=== PATIENT | male | born 1935 | race Hispanic/Latino ===

== ENCOUNTER 2017-01-26 01:11 | Inpatient (IN) | payer MEDICARE ==
[2017-01-26 03:28] LABS: Basophils % (Auto) 0.4 % (0.0-1.8); Hematocrit 39.6 % (35.5-45.6); Hemoglobin 13.1 gm/dl (11.8-15.2); Mean Corpuscular HGB Conc 33 % (32-34); Mean Corpuscular Hemoglobin 31 pg (28-32); Mean Corpuscular Volume 93 fl (84-94); Platelet Count 182 K/mm3 (140-440); Red Blood Count 4.28 M/mm3 (3.65-5.03); Red Cell Distribution Width 15.6 % (13.2-15.2); White Blood Count 19.1 K/mm3 (4.5-11.0)
[2017-01-26 03:37] LABS: INR 1.3 (0.87-1.13)
[2017-01-26 03:38] LABS: Partial Thromboplastin Time 32.6 Sec. (24.2-36.6)
[2017-01-26 03:47] LABS: Anion Gap 22 mmol/L; BUN/Creatinine Ratio 19.16; Blood Urea Nitrogen 23 mg/dL (9-20); Calcium 9.5 mg/dL (8.4-10.2); Carbon Dioxide 26 mmol/L (22-30); Chloride 97.2 mmol/L (98-107); Glucose 105 mg/dL (75-100); Potassium 3.9 mmol/L (3.6-5.0); Sodium 141 mmol/L (137-145)
[2017-01-26] MEDS ORDERED: TYLENOL PO ONE (06:59)
[2017-01-26] MEDS ORDERED: LOVENOX SUB-Q ONE (06:59)
--- NOTE | 2017-01-26 07:00 | Emergency Department Report ---
ED General Adult HPI - General Chief complaint: Upper Respiratory Infection Stated complaint: CHEST CONGESTION/FEVER Time Seen by Provider: 01/26/17 06:43 Source: patient, RN notes reviewed Mode of arrival: Ambulatory Limitations: No Limitations - History of Present Illness Initial comments: Past medical history: Atrial fibrillation, on Coumadin therapy, CHF, hypertension, chronic bilateral extremity venous insufficiency This is an 81-year-old male. He is previously unknown to me. Follows with Rufina Carrasco sporadically for cardiology. Primary care doctor is Dr. Fritz. Patient presents to the ER with cough. Cough has been present for one week. No chest pain. Positive fevers. No stenotic and shortness of breath. No nausea, vomiting or diarrhea. Patient received his influenza shot in August. His primary care doctor is managing his Coumadin level as per the patient and his son. Cough has no exacerbating or relieving factors. Patient came to the ER at the request of family. -: Gradual Severity scale (0 -10): 0 Consistency: intermittent Improves with: none Worsens with: none Associated Symptoms: cough, fever/chills. denies: chest pain - Related Data Home Medications Medication Instructions Recorded Confirmed Last Taken Carvedilol [Coreg] 6.25 mg PO BID 09/30/13 01/26/17 Unknown Furosemide [Lasix] 40 mg PO DAILY 09/30/13 01/26/17 Unknown Allopurinol [Zyloprim] 200 mg PO QDAY 01/26/17 01/26/17 Unknown Levothyroxine [Synthroid] 88 mcg PO QAM 01/26/17 01/26/17 Unknown Lisinopril [Zestril TAB] 10 mg PO QDAY 01/26/17 01/26/17 Unknown Pravastatin Sodium [Pravastatin] 20 mg PO QHS 01/26/17 01/26/17 Unknown Warfarin [Coumadin] 6 mg PO QDAY 01/26/17 01/26/17 Unknown Previous Rx's Medication Instructions Recorded Last Taken Type Acetaminophen Oral Liqd [Tylenol] 650 mg PO Q6H PRN #30 oral.liqd 03/28/14 Unknown Rx Digoxin [Lanoxin] 0.125 mg PO DAILY #30 tablet 03/28/14 Unknown Rx Albuterol Sulfate [Proair 90 mcg IH Q4HR PRN #2 aer.pow.ba 01/26/17 Unknown Rx Respiclick] Doxycycline [Vibramycin CAP] 100 mg PO Q12HR #14 capsule 01/26/17 Unknown Rx Enoxaparin [Lovenox] 80 mg SQ Q12HR #10 syringe 01/26/17 Unknown Rx Allergies Allergy/AdvReac Type Severity Reaction Status Date / Time No Known Allergies Allergy Verified 10/30/16 12:15 ED Review of Systems ROS: Stated complaint: CHEST CONGESTION/FEVER Other details as noted in HPI Constitutional: denies: malaise Eyes: denies: vision change Respiratory: cough Cardiovascular: denies: chest pain Gastrointestinal: denies: nausea Genitourinary: denies: dysuria Musculoskeletal: denies: back pain Skin: lesions Neurological: denies: weakness Psychiatric: as per HPI ED Past Medical Hx - Past Medical History Previous Medical History?: Yes Hx Hypertension: Yes Hx Heart Attack/AMI: Yes Hx Congestive Heart Failure: Yes Hx Diabetes: No Additional medical history: chronic cellulitis BLE. hypothyroidism. CAD, afib, - Surgical History Additional Surgical History: "jaw surgery" - Social History Smoking Status: Former Smoker Substance Use Type: None - Medications Home Medications: Home Medications Medication Instructions Recorded Confirmed Last Taken Type Carvedilol [Coreg] 6.25 mg PO BID 09/30/13 01/26/17 Unknown History Furosemide [Lasix] 40 mg PO DAILY 09/30/13 01/26/17 Unknown History Acetaminophen Oral Liqd [Tylenol] 650 mg PO Q6H PRN #30 oral.liqd 03/28/1401/26 Unknown Rx Digoxin [Lanoxin] 0.125 mg PO DAILY #30 tablet 03/28/14 01/26/17 Unknown Rx Albuterol Sulfate [Proair 90 mcg IH Q4HR PRN #2 aer.pow.ba 01/26/17 Unknown Rx Respiclick] Allopurinol [Zyloprim] 200 mg PO QDAY 01/26/17 01/26/17 Unknown History Doxycycline [Vibramycin CAP] 100 mg PO Q12HR #14 capsule 01/26/17 Unknown Rx Enoxaparin [Lovenox] 80 mg SQ Q12HR #10 syringe 01/26/17 Unknown Rx Levothyroxine [Synthroid] 88 mcg PO QAM 01/26/17 01/26/17 Unknown History Lisinopril [Zestril TAB] 10 mg PO QDAY 01/26/17 01/26/17 Unknown History Pravastatin Sodium [Pravastatin] 20 mg PO QHS 01/26/17 01/26/17 Unknown History Warfarin [Coumadin] 6 mg PO QDAY 01/26/17 01/26/17 Unknown History ED Physical Exam - General Limitations: No Limitations General appearance: alert, in no apparent distress - Head Head exam: Present: atraumatic, normocephalic - Eye Eye exam: Present: normal appearance, EOMI. Absent: nystagmus - ENT ENT exam: Present: normal exam, normal orophraynx, mucous membranes moist, TM's normal bilaterally, normal external ear exam - Neck Neck exam: Present: normal inspection, full ROM. Absent: tenderness, meningismus - Respiratory Respiratory exam: Present: normal lung sounds bilaterally. Absent: respiratory distress, wheezes, rales, rhonchi, stridor, chest wall tenderness - Cardiovascular Cardiovascular Exam: Present: regular rate, irregular rhythm, normal heart sounds. Absent: systolic murmur, diastolic murmur, rubs, gallop - GI/Abdominal GI/Abdominal exam: Present: soft, normal bowel sounds. Absent: distended, tenderness, guarding, rebound, rigid, pulsatile mass - Rectal Rectal exam: Present: deferred - Extremities Exam Extremities exam: Present: normal inspection, full ROM, normal capillary refill. Absent: tenderness, pedal edema, joint swelling, calf tenderness - Back Exam Back exam: Present: normal inspection, full ROM. Absent: tenderness, CVA tenderness (R), CVA tenderness (L), muscle spasm, paraspinal tenderness, vertebral tenderness - Neurological Exam Neurological exam: Present: alert, oriented X3, normal gait, other (Extraocular movements intact. Tongue midline. No facial droop. Facial sensation intact to light touch in the V1, V2, V3 distribution bilaterally. 5 and 5 strength in 4 extremities.. Sensation is intact to light touch in 4 extremities.). Absent : motor sensory deficit - Psychiatric Psychiatric exam: Present: normal affect, normal mood - Skin Skin exam: Present: warm, rash, other (lesions consistent with chronic venous insufficiency are noted in the bilateral lower extremities.) ED Course Vital Signs 01/26/17 01/26/17 01/26/17 02:39 06:58 08:33 Temperature 100.3 F H 98.3 F Pulse Rate 102 H 60 77 Respiratory 20 20 22 Rate Blood Pressure 140/58 Blood Pressure 160/68 129/75 [Right] O2 Sat by Pulse 93 96 97 Oximetry 01/26/17 01/26/17 01/26/17 11:26 11:27 11:34 Temperature Pulse Rate 53 L 53 L 53 L Respiratory 16 Rate Blood Pressure 107/46 Blood Pressure 107/64 [Right] O2 Sat by Pulse 95 Oximetry - Reevaluation(s) Reevaluation #1: 01/26/17 08:33 Differential diagnosis: Bronchitis, pneumonia, viral syndrome, incidental subtherapeutic INR assessment and plan: 81-year-old male with cough, fever, multiple vascular risk factors, x-ray that suggests possible mild CHF versus left lower lobe pneumonia. Given presence of fever, cough, leukocytosis, chest x-ray findings, she will be treated empirically for community-acquired pneumonia. Given that he is on Coumadin therapy, not a candidate for for quinolone or macrolide therapy. Therefore, he will be given ceftriaxone and doxycycline. I don't believe the patient is volume overloaded clinically, therefore, I will withhold diuretics at this time. Case is discussed with the Hospital physician, Dr. Valdo Kong, who accepts the patient to his service. Patient was loaded empirically with Lovenox for his subtherapeutic INR. 01/26/17 08:34 01/26/17 08:43 Reevaluation #2: 01/26/17 08:36 . 01/26/17 08:43 ED Medical Decision Making - Lab Data Result diagrams: 01/27/17 03:01/27/17 03:17 Vital Signs 01/26/17 01/26/17 01/26/17 02:39 06:58 08:33 Temperature 100.3 F H 98.3 F Pulse Rate 102 H 60 77 Respiratory 20 20 22 Rate Blood Pressure 140/58 Blood Pressure 160/68 129/75 [Right] O2 Sat by Pulse 93 96 97 Oximetry Lab Results 01/26/17 01/26/17 01/26/17 Range/Units 03:15 03:15 03:15 WBC 19.1 H (4.5-11.0) K/mm3 RBC 4.28 (3.65-5.03) M/mm3 Hgb 13.1 (11.8-15.2) gm/dl Hct 39.6 (35.5-45.6) % MCV 93 (84-94) fl MCH 31 (28-32) pg MCHC 33 (32-34) % RDW 15.6 H (13.2-15.2) % Plt Count 182 (140-440) K/mm3 Lymph % (Auto) 8.7 L (13.4-35.0) % Mcminn % (Auto) 5.0 (0.0-7.3) % Eos % (Auto) 0.0 (0.0-4.3) % Baso % (Auto) 0.4 (0.0-1.8) % Lymph # 1.7 (1.2-5.4) K/mm3 Mcminn # 0.9 H (0.0-0.8) K/mm3 Eos # 0.0 (0.0-0.4) K/mm3 Baso # 0.1 (0.0-0.1) K/mm3 Seg Neutrophils % 85.9 H (40.0-70.0) % Seg Neutrophils # 16.4 H (1.8-7.7) K/mm3 PT 16.1 H (12.2-14.9) Sec. INR 1.30 H (0.87-1.13) APTT 32.6 (24.2-36.6) Sec. Sodium 141 (137-145) mmol/L Potassium 3.9 (3.6-5.0) mmol/L Chloride 97.2 L (98-107) mmol/L Carbon Dioxide 26 (22-30) mmol/L Anion Gap 22 mmol/L BUN 23 H (9-20) mg/dL Creatinine 1.2 (0.8-1.5) mg/dL Estimated GFR 58 ml/min BUN/Creatinine Ratio 19.16 % Glucose 105 H (75-100) mg/dL Calcium 9.5 (8.4-10.2) mg/dL Troponin T < 0.010 (0.00-0.029) ng/mL - EKG Data When compared to previous EKG there are: no significant change 01/26/17 08:35 atrial fibrillation, 77 bpm, QTC 463 ms, motion artifact, not morphologically consistent with STEMI - Radiology Data Radiology results: report reviewed, image reviewed X-ray of the chest demonstrates mild CHF versus viral overload, subtle opacity noted in the left lower lobe, possible pneumonia Critical care attestation.: If time is entered above; I have spent that time in minutes in the direct care of this critically ill patient, excluding procedure time. ED Disposition Clinical Impression: Anticoagulated on Coumadin, Acute febrile illness, Cough Disposition: OP ADMITTED IP TO THIS HOSP Is pt being admited?: Yes Does the pt Need Aspirin: No Condition: Good
[2017-01-26] MEDS ORDERED: TYLENOL ONE (08:24)
--- NOTE | 2017-01-26 08:31 | XRay Report ---
ROUTINE CHEST, TWO VIEWS: HISTORY: Shortness of breath. Compared to 03/23/14. There is mild cardiomegaly and borderline pulmonary venous structures. Small left pleural effusion is suspected. There is subtle opacity in the left lower lobe which probably represents atelectatic changes. If fever is present, pneumonia could be considered. The remainder of the lungs are clear. No pneumothorax. Multiple calcified mediastinal lymph nodes and calcified right lung granuloma are noted consistent with chronic parenchymal disease. IMPRESSION: Mild CHF versus volume overload. Probable segmental atelectasis in the left lower lobe. See above.
[2017-01-26] MEDS ORDERED: VIBRAMYCIN PO ONE (08:42)
--- NOTE | 2017-01-26 08:53 | History and Physical Report ---
History of Present Illness Date of examination: 01/26/17 Date of admission: 01-26-17 Chief complaint: sob fever History of present illness: 81-year-old male with a history of hypertension congestive heart failure chronic venous stasis changes and lymphedema presents with a 4 day history of productive cough low-grade fever. Patient states he's been feeling a little more weak than usual otherwise no new concerns. Patient states he was coughing a lot and his live-in girlfriend told him to go to the emergency room. It was there that patient was found to have a left lower lobe pneumonia. And a white count of 19. His primary care physician Dr. loera. Present patient's hemodynamically stable breathing fine able to speak in full sentences and is not hypoxic at this time. Past History Past Medical History: atrial fib, heart failure, hypertension. denies: acute [place] , arrhythmia, arthritis, CAD, cancer, COPD, hepatitis, HIV/AIDS, liver disease, renal failure, seizures Past Surgical History: No surgical history, Other Social history: single (no surgery in his face when he was 15.), lives with family, smoking, full code, AND/DNR-allow natural . denies: alcohol abuse Family history: no significant family history Medications and Allergies Allergies Allergy/AdvReac Type Severity Reaction Status Date / Time No Known Allergies Allergy Verified 10/30/16 12:15 Home Medications Medication Instructions Recorded Confirmed Last Taken Type Carvedilol [Coreg] 6.25 mg PO BID 09/30/13 07/26/14 Unknown History Furosemide [Lasix] 20 mg PO DAILY 09/30/13 07/26/14 Unknown History Acetaminophen Oral Liqd [Tylenol] 650 mg PO Q6H PRN #30 oral.liqd 03/28/1407/26 Unknown Rx Digoxin [Lanoxin] 0.125 mg PO DAILY #30 tablet 03/28/14 07/26/14 Unknown Rx Warfarin [Coumadin] 7.5 mg PO DAILY@1700 #30 tablet 03/28/14 07/26/14 Unknown Rx Sulfamethoxazole/Trimethoprim 1 tab PO BID 07/26/14 07/26/14 Unknown History [Bactrim DS] Albuterol Sulfate [Proair 90 mcg IH Q4HR PRN #2 aer.pow.ba 01/26/17 Unknown Rx Respiclick] Doxycycline [Vibramycin CAP] 100 mg PO Q12HR #14 capsule 01/26/17 Unknown Rx Enoxaparin [Lovenox] 80 mg SQ Q12HR #10 syringe 01/26/17 Unknown Rx Active Meds: Active Medications Ceftriaxone Sodium (Rocephin/Ns 1 Gm/50 Ml) 1 gm in 50 mls @ 100 mls/hr IV ONCE ONE Stop: 01/26/17 09:29 Review of Systems Constitutional: fever, fatigue, no weight loss, no weight gain, no anorexia, no weakness, no malaise, no lethargy Ears, nose, mouth and throat: no deferred, no ear discharge, no decreased hearing, no nose pain, no nasal congestion, no dental pain, no mouth pain, no post-nasal drip, no vertigo, no neck fullness/pressure, no other Cardiovascular: shortness of breath, no chest pain, no edema, no paroxysmal nocturnal dyspnea, no high blood pressure Respiratory: cough, cough with sputum, shortness of breath, no excessive sputum , no hemoptysis, no congestion, no pleurisy, no pain, no snoring, no sleep apnea , no respiratory infections Gastrointestinal: no abdominal pain, no nausea, no constipation, no change in bowel habits, no melena, no loss of appetite, no heartburn, no jaundice, no dyspepsia/bloating, no lactose intolerance Genitourinary Male: no hematuria, no erectile dysfunction, no genital pain, no genital sores, no testicular pain Musculoskeletal: no neck pain, no shooting arm pain, no hot joints, no morning stiffness, no limitation of motion, no fractures, no loss of height, no arthritis Integumentary: no pruritis, no wounds, no jaundice, no lesions, no depigmentation, no color changes Neurological: no head injury, no transient paralysis, no paralysis, no weakness , no numbness, no tingling, no tremors, no vertigo, no migraines, no convulsions , no aphasia, no change in speech, no changes in smell/taste, no balance difficulties, no sensory deficit, no loss of vision, no hearing difficulties, no burning pain, no spasticity Psychiatric: no sleep disturbances, no change in appetite, no paranoia, no anhedonia, no sadness/tearfullness Endocrine: no heat intolerance, no excessive thirst, no polyuria, no excessive sweating, no flushing, no increase in ring/shoe/hat size, no proptosis, no deepening of the voice, no thyroid mass, no high blood sugars Hematologic/Lymphatic: no easy bruising, no lymphedema Allergic/Immunologic: no persistent infections, no anaphylaxis Exam - Constitutional Vitals: Temp Pulse Resp BP Pulse Ox 98.3 F 77 22 129/75 97 01/26/17 06:58 01/26/17 08:33 01/26/17 08:33 01/26/17 08:33 01/26/17 08:33 General appearance: Present: no acute distress, well-nourished - EENT ENT: hearing intact, clear oral mucosa - Neck Neck: Present: supple, normal ROM - Respiratory Respiratory: left: diminished - Cardiovascular Heart Sounds: Present: S1 & S2. Absent: rub, click - Extremities Extremities: pulses symmetrical Extremity abnormal: edema, other (significant edema lymphedema weeping chronic venous stasis changes.) Peripheral Pulses: abnormal - Abdominal General gastrointestinal: Present: soft, non-tender, non-distended, normal bowel sounds - Integumentary Integumentary: Present: rash - Musculoskeletal Musculoskeletal: generalized weakness - Psychiatric Psychiatric: appropriate mood/affect, intact judgment & insight - Neurologic Neurologic: CNII-XII intact, moves all extremities Results - Labs CBC & Chem 7: 01/26/17 03:15 01/26/17 03:15 Labs: Laboratory Last Values WBC 19.1 K/mm3 (4.5-11.0) H 01/26/17 03:15 RBC 4.28 M/mm3 (3.65-5.03) 01/26/17 03:15 Hgb 13.1 gm/dl (11.8-15.2) 01/26/17 03:15 Hct 39.6 % (35.5-45.6) 01/26/17 03:15 MCV 93 fl (84-94) 01/26/17 03:15 MCH 31 pg (28-32) 01/26/17 03:15 MCHC 33 % (32-34) 01/26/17 03:15 RDW 15.6 % (13.2-15.2) H 01/26/17 03:15 Plt Count 182 K/mm3 (140-440) 01/26/17 03:15 Lymph % (Auto) 8.7 % (13.4-35.0) L 01/26/17 03:15 Kay % (Auto) 5.0 % (0.0-7.3) 01/26/17 03:15 Eos % (Auto) 0.0 % (0.0-4.3) 01/26/17 03:15 Baso % (Auto) 0.4 % (0.0-1.8) 01/26/17 03:15 Lymph # 1.7 K/mm3 (1.2-5.4) 01/26/17 03:15 Kay # 0.9 K/mm3 (0.0-0.8) H 01/26/17 03:15 Eos # 0.0 K/mm3 (0.0-0.4) 01/26/17 03:15 Baso # 0.1 K/mm3 (0.0-0.1) 01/26/17 03:15 Seg Neutrophils % 85.9 % (40.0-70.0) H 01/26/17 03:15 Seg Neutrophils # 16.4 K/mm3 (1.8-7.7) H 01/26/17 03:15 PT 16.1 Sec. (12.2-14.9) H 01/26/17 03:15 INR 1.30 (0.87-1.13) H 01/26/17 03:15 APTT 32.6 Sec. (24.2-36.6) 01/26/17 03:15 Sodium 141 mmol/L (137-145) 01/26/17 03:15 Potassium 3.9 mmol/L (3.6-5.0) 01/26/17 03:15 Chloride 97.2 mmol/L (98-107) L 01/26/17 03:15 Carbon Dioxide 26 mmol/L (22-30) 01/26/17 03:15 Anion Gap 22 mmol/L 01/26/17 03:15 BUN 23 mg/dL (9-20) H 01/26/17 03:15 Creatinine 1.2 mg/dL (0.8-1.5) 01/26/17 03:15 Estimated GFR 58 ml/min 01/26/17 03:15 BUN/Creatinine Ratio 19.16 % 01/26/17 03:15 Glucose 105 mg/dL (75-100) H 01/26/17 03:15 Calcium 9.5 mg/dL (8.4-10.2) 01/26/17 03:15 Troponin T < 0.010 ng/mL (0.00-0.029) 01/26/17 03:15 - Imaging and Cardiology Chest x-ray: image reviewed Assessment and Plan Advance Directives: Yes VTE prophylaxis?: Chemical Plan of care discussed with patient/family: Yes - Patient Problems (1) Atrial fibrillation Current Visit: No Status: Acute Qualifiers: Atrial fibrillation type: A Qualified Code(s): I48.91 - Unspecified atrial fibrillation Plan to address problem: Stable we'll continue Coumadin and digoxin. No evidence of bleeding we'll obtain sure rate well controlled. (2) CAD (coronary artery disease) Current Visit: No Status: Acute Qualifiers: Coronary Disease-Associated Artery/Lesion type: C [place] vs. transplanted heart: N Associated angina: A Plan to address problem: Stable remains chest pain-free (3) Congestive heart failure Current Visit: No Status: Acute Qualifiers: Congestive heart failure type: C Congestive heart failure chronicity: C Plan to address problem: Patient not actively in failure right now. Has lower extremity edema that this is chronic venous stasis. Weeping. Was treated for infection no clear cellulitis. (4) Healthcare associated bacterial pneumonia Current Visit: No Status: Acute Plan to address problem: Patient 81 years old with chronic medical problems and comorbidities. We'll treat with azithromycin for left lower lobe pneumonia. Currently hemodynamically stable. Continue albuterol Atrovent nebulizes. Oxygen when necessary. (5) Hypertension Current Visit: No Status: Acute Qualifiers: Hypertension type: H Plan to address problem: Fair control continue current antihypertensives.
[2017-01-26] MEDS ORDERED: ROCEPHIN/NS 1 GM/50 ML 1 GM/50 ML BAG IV ONE (09:00)
--- NOTE | 2017-01-26 09:24 | Admit Criteria Form ---
Admission Criteria Documentation: PNEUMONIA, COMMUNITY ACQUIRED Clinical Indications for Admission to Inpatient Care ( Place 'X' for any and all applicable criteria): Admission is indicated for ANY ONE of the following (1)(2)(3): [ ]I. Hypoxemia indicated by ANY ONE of the following: [ ]a) Oxygen saturation less than 90% while breathing room air [ ]b) PO2 less than 60 mm Hg (8.0 kPa) while breathing room air [ ]c) Chronic lung disease with significant deterioration from baseline oxygenation [X]II. Appropriate diagnostic testing and treatment unavailable in outpatient or recovery facility (eg,testing or infection control measures unavailable(10) [ ]III. Moderate-risk or high-risk category patients (Pneumonia Severity Index (PSI) class IV or V, or CURB-65 score of 3 or greater). [ ]IV. Outpatient treatment failure as indicated by ANY ONE of the following(9) : [ ]a) Failure to respond to antibiotic (eg, resistant organism) [ ]b) Clinically significant adverse effects from medication (eg, vomiting) [ ]c) Complications of pneumonia (eg, empyema, bacteremia) [ ]d) Significant worsening of comorbid cond necessitating inpatient care (eg, chronic heart failure) [ ]V. Intermediate-risk category patients (eg, PSI class III or CURB-65 score 2) who do not improve with initial therapy and observation. [ ]. Immunocompromised patients (eg, AIDS, chronic steroid use) at moderate or high risk based on clinical evaluation. [ ]VII. Complicated pleural effusions (eg, exudative, loculated) [ ]VIII.Hemodynamic instability [ ] IX. Altered mental status that is severe or persistent. [ ]X. Dehydration that is severe or persistent. [ ]XI. Bacteremia [ ]XII. Respiratory finding (eg. tachypnea) that do not respond to outpatient or observation care treatment Extended stay beyond goal length of stay may be needed for (20) [ ]a) Unclear diagnosis [ ]b) Pleural disease [ ]c) Severe pneumonia or treatment failure (25 [ ]d) Respiratory failure (anticipate invasive or noninvasive ventilatory support) [ ]e) Abnormal serum electrolytes (serum Na concentration less than 135 mEq/L (mmol/L) (32)(33) [ ]f) Clinically significant comorbid illness (eg, heart failure, atrial fibrillation with rapid heart rate, alcohol withdrawal, renal insufficiency)(34)(35) [ ]g) Comorbid acute exacerbation of COPD(36) [ ]h) Concomitant diagnosis of malignancy that may be associated with malnutrition, immunologic impairment, or bronchial obstruction. [ ]i) Concomitant altered mental status [ ]j) Culture-identified Gram-negative or antibiotic-resistant organism (eg, Pseudomonas, methicillin-resistant Staphylococcus aureus)(30) [ ]k) Healthcare-associated pneumonia The original [employer] content created by [employer] has been revised. The portions of the content which have been revised are identified through the use of italic text or in bold, and [facility] has neither reviewed nor approved the modified material. All other unmodified content is copyright [employer]. Please see references footnoted in the original [employer] edition 2016 Admission Criteria Met: Yes
[2017-01-26] MEDS ORDERED: MORPHINE IV PRN (09:30)
[2017-01-26] MEDS ORDERED: ZOFRAN IV PRN (09:30)
[2017-01-26] MEDS ORDERED: PERCOCET 5/325 PO PRN (09:30)
[2017-01-26] MEDS ORDERED: TYLENOL PO PRN (09:30)
[2017-01-26] MEDS ORDERED: LOVENOX SUB-Q SCH (10:00)
[2017-01-26] MEDS ORDERED: MILK OF MAGNESIA PO PRN (10:00)
[2017-01-26] MEDS ORDERED: DULCOLAX PR PRN (10:00)
[2017-01-26] MEDS: ZITHROMAX 500 MG in NACL 0.9% 250ML 250 ML IV SCH (10:11)
[2017-01-26] MEDS: LOVENOX SUB-Q SCH (11:13)
[2017-01-26] MEDS: COREG PO SCH ×2 (11:26→22:07)
[2017-01-26] MEDS: LANOXIN PO SCH (11:27)
[2017-01-26] MEDS: PEPCID PO SCH ×2 (11:34→22:11)
[2017-01-26] MEDS ORDERED: DUONEB 0.5 MG-3 MG/3 ML SOLN IH ONE (16:21)
[2017-01-26] MEDS: COUMADIN PO SCH (17:29)
[2017-01-26] MEDS: NACL 0.9% 1000 ML 1,000 ML IV SCH (17:31)
[2017-01-26] MEDS: DUONEB 0.5 MG-3 MG/3 ML SOLN IH SCH ×2 (19:18→20:49)
[2017-01-27] MEDS: DUONEB 0.5 MG-3 MG/3 ML SOLN IH SCH ×4 (01:50→20:22)
[2017-01-27 04:15] LABS: Basophils % (Auto) 0.2 % (0.0-1.8); Eosinophils % (Auto) 0.4 % (0.0-4.3); Hematocrit 33.8 % (35.5-45.6); Hemoglobin 11.2 gm/dl (11.8-15.2); Mean Corpuscular HGB Conc 33 % (32-34); Mean Corpuscular Hemoglobin 31 pg (28-32); Mean Corpuscular Volume 93 fl (84-94); Platelet Count 152 K/mm3 (140-440); Red Blood Count 3.62 M/mm3 (3.65-5.03); Red Cell Distribution Width 15.6 % (13.2-15.2); White Blood Count 13.3 K/mm3 (4.5-11.0)
[2017-01-27 04:53] LABS: Anion Gap 13 mmol/L; Blood Urea Nitrogen 23 mg/dL (9-20); Calcium 8.2 mg/dL (8.4-10.2); Carbon Dioxide 26 mmol/L (22-30); Chloride 102.6 mmol/L (98-107); Glucose 91 mg/dL (75-100); Potassium 3.8 mmol/L (3.6-5.0); Sodium 138 mmol/L (137-145)
[2017-01-27 05:00] LABS: INR 1.41 (0.87-1.13)
[2017-01-27] MEDS: NACL 0.9% 1000 ML 1,000 ML IV SCH ×2 (08:05→22:00)
[2017-01-27] MEDS ORDERED: LASIX IV ONE (10:00)
[2017-01-27] MEDS: LOVENOX SUB-Q SCH (10:12)
[2017-01-27] MEDS: ZITHROMAX 500 MG in NACL 0.9% 250ML 250 ML IV SCH (10:22)
[2017-01-27] MEDS: PEPCID PO SCH ×2 (10:28→21:53)
[2017-01-27] MEDS: LASIX PO SCH (11:47)
[2017-01-27] MEDS: COREG PO SCH ×2 (13:14→21:53)
[2017-01-27] MEDS: LANOXIN PO SCH (13:15)
[2017-01-27] MEDS: COUMADIN PO SCH (17:48)
--- NOTE | 2017-01-27 19:04 | Progress Note ---
Assessment and Plan Assessment and plan: 81-year-old male with a history of hypertension congestive heart failure chronic venous stasis changes and lymphedema presents with a 4 day history of productive cough low-grade fever. Patient states he's been feeling a little more weak than usual otherwise no new concerns. Patient states he was coughing a lot and his live-in girlfriend told him to go to the emergency room. It was there that patient was found to have a left lower lobe pneumonia. And a white count of 19. His primary care physician Dr. loera. Present patient's hemodynamically stable breathing fine able to speak in full sentences and is not hypoxic at this time. - Patient Problems (1)Healthcare associated bacterial pneumonia r/o GNR Current Visit: No Status: Acute Plan to address problem: Patient 81 years old with chronic medical problems and comorbidities. We'll treat with azithromycin for left lower lobe pneumonia. Currently hemodynamically stable. Continue albuterol Atrovent nebulizes. Oxygen when necessary. will add zosyn (2) CAD (coronary artery disease) Current Visit: No Status: Acute Qualifiers: Coronary Disease-Associated Artery/Lesion type: C [place] vs. transplanted heart: N Associated angina: A Plan to address problem: Stable remains chest pain-free (3) Congestive heart failure- Likely acute on chronic systolic. Current Visit: No Status: Acute Qualifiers: Congestive heart failure type: C Congestive heart failure chronicity: C Plan to address problem: Obtain Echo. Recieved one dose of lasix. Has lower extremity edema that this is chronic venous stasis. Weeping. Was treated for infection no clear cellulitis. (4) Atrial fibrillation Stable we'll continue Coumadin and digoxin. No evidence of bleeding Continue to monitor (5) Hypertension Current Visit: No Status: Acute Qualifiers: Hypertension type: H Plan to address problem: Fair control continue current antihypertensives. History Interval history: Patient seen and examined this morning still with mild shortness of breath. Still with cough nonproductive. Denies any chest pain, nausea, vomiting, diarrhea No fever noted blood pressure controlled No adverse events reported to me by nursing staff Hospitalist Physical - Physical exam Narrative exam: VITAL SIGNS: Reviewed. GENERAL: The patient appeared well nourished and normally developed. Vital signs as documented. HEAD: No signs of head trauma. EYES: Pupils are equal. Extraocular motions intact. EARS: Hearing grossly intact. MOUTH: Oropharynx is normal. NECK: No adenopathy, no JVD. CHEST: Chest with crackles breath sounds bilaterally. No wheezes, CARDIAC: Regular rate and rhythm. S1 and S2, without murmurs, gallops, or rubs. VASCULAR: Trace Edema. Peripheral pulses normal and equal in all extremities. ABDOMEN: Soft, without detectable tenderness. No sign of distention. No rebound or guarding, and no masses palpated. Bowel Sounds normal. MUSCULOSKELETAL: Good range of motion of all major joints. Extremities without clubbing, cyanosis. Trace edema. NEUROLOGIC EXAM: Alert and oriented x 3. No focal sensory or strength deficits. Speech normal. Follows commands. PSYCHIATRIC: Mood normal. SKIN: Chronic vascular changes bilaterally. - Constitutional Vitals: Temp Pulse Resp BP Pulse Ox 100.2 F H 62 20 125/53 99 01/27/17 04:39 01/27/17 13:15 01/27/17 01:42 01/27/17 13:14 01/26/17 21:38 General appearance: Present: no acute distress, well-nourished Results - Labs CBC & Chem 7: 01/28/17 04:19 01/28/17 04:19 Labs: Laboratory Last Values WBC 13.3 K/mm3 (4.5-11.0) H 01/27/17 03:17 RBC 3.62 M/mm3 (3.65-5.03) L 01/27/17 03:17 Hgb 11.2 gm/dl (11.8-15.2) L 01/27/17 03:17 Hct 33.8 % (35.5-45.6) L 01/27/17 03:17 MCV 93 fl (84-94) 01/27/17 03:17 MCH 31 pg (28-32) 01/27/17 03:17 MCHC 33 % (32-34) 01/27/17 03:17 RDW 15.6 % (13.2-15.2) H 01/27/17 03:17 Plt Count 152 K/mm3 (140-440) 01/27/17 03:17 Lymph % (Auto) 11.9 % (13.4-35.0) L 01/27/17 03:17 [place] % (Auto) 5.4 % (0.0-7.3) 01/27/17 03:17 Eos % (Auto) 0.4 % (0.0-4.3) 01/27/17 03:17 Baso % (Auto) 0.2 % (0.0-1.8) 01/27/17 03:17 Lymph # 1.6 K/mm3 (1.2-5.4) 01/27/17 03:17 [place] # 0.7 K/mm3 (0.0-0.8) 01/27/17 03:17 Eos # 0.0 K/mm3 (0.0-0.4) 01/27/17 03:17 Baso # 0.0 K/mm3 (0.0-0.1) 01/27/17 03:17 Seg Neutrophils % 82.1 % (40.0-70.0) H 01/27/17 03:17 Seg Neutrophils # 10.9 K/mm3 (1.8-7.7) H 01/27/17 03:17 PT 17.2 Sec. (12.2-14.9) H 01/27/17 03:17 INR 1.41 (0.87-1.13) H 01/27/17 03:17 APTT 32.6 Sec. (24.2-36.6) 01/26/17 03:15 Sodium 138 mmol/L (137-145) 01/27/17 03:17 Potassium 3.8 mmol/L (3.6-5.0) 01/27/17 03:17 Chloride 102.6 mmol/L (98-107) 01/27/17 03:17 Carbon Dioxide 26 mmol/L (22-30) 01/27/17 03:17 Anion Gap 13 mmol/L 01/27/17 03:17 BUN 23 mg/dL (9-20) H 01/27/17 03:17 Creatinine 1.0 mg/dL (0.8-1.5) 01/27/17 03:17 Estimated GFR > 60 ml/min 01/27/17 03:17 BUN/Creatinine Ratio 23.00 % 01/27/17 03:17 Glucose 91 mg/dL (75-100) 01/27/17 03:17 Lactic Acid 1.7 mmol/L (0.7-2.0) 01/26/17 09:09 Calcium 8.2 mg/dL (8.4-10.2) L 01/27/17 03:17 Troponin T < 0.010 ng/mL (0.00-0.029) 01/26/17 03:15 - Imaging and Cardiology Chest x-ray: image reviewed (mild congestion with some atalectasis vs infiltrate on my review)
[2017-01-28] MEDS: DUONEB 0.5 MG-3 MG/3 ML SOLN IH SCH ×4 (01:57→20:15)
[2017-01-28 05:15] LABS: Anion Gap 17 mmol/L; Blood Urea Nitrogen 20 mg/dL (9-20); Calcium 8.3 mg/dL (8.4-10.2); Carbon Dioxide 26 mmol/L (22-30); Chloride 100.2 mmol/L (98-107); Glucose 90 mg/dL (75-100); Potassium 3.6 mmol/L (3.6-5.0); Sodium 140 mmol/L (137-145)
[2017-01-28 05:17] LABS: Hematocrit 35.3 % (35.5-45.6); Hemoglobin 11.8 gm/dl (11.8-15.2); Mean Corpuscular HGB Conc 33 % (32-34); Mean Corpuscular Hemoglobin 31 pg (28-32); Mean Corpuscular Volume 93 fl (84-94); Platelet Count 151 K/mm3 (140-440); Red Blood Count 3.81 M/mm3 (3.65-5.03); Red Cell Distribution Width 15.5 % (13.2-15.2); White Blood Count 9.4 K/mm3 (4.5-11.0)
[2017-01-28 05:26] LABS: INR 1.31 (0.87-1.13)
[2017-01-28] MEDS: LANOXIN PO SCH (09:31)
[2017-01-28] MEDS: COREG PO SCH ×2 (09:36→21:58)
[2017-01-28] MEDS: PEPCID PO SCH ×2 (09:37→22:00)
[2017-01-28] MEDS: LASIX PO SCH (09:37)
[2017-01-28] MEDS: LOVENOX SUB-Q SCH (09:37)
--- NOTE | 2017-01-28 17:09 | Progress Note ---
Assessment and Plan Assessment and plan: 81-year-old male with a history of hypertension congestive heart failure chronic venous stasis changes and lymphedema presents with a 4 day history of productive cough low-grade fever. Patient states he's been feeling a little more weak than usual otherwise no new concerns. Patient states he was coughing a lot and his live-in girlfriend told him to go to the emergency room. It was there that patient was found to have a left lower lobe pneumonia. And a white count of 19. His primary care physician Dr. loera. Present patient's hemodynamically stable breathing fine able to speak in full sentences and is not hypoxic at this time. - Patient Problems (1)Healthcare associated bacterial pneumonia r/o GNR Current Visit: No Status: Acute Plan to address problem: Patient 81 years old with chronic medical problems and comorbidities. We'll treat with azithromycin for left lower lobe pneumonia. Currently hemodynamically stable. Continue albuterol Atrovent nebulizer. Oxygen when necessary. (2) CAD (coronary artery disease) Current Visit: No Status: Acute Qualifiers: Coronary Disease-Associated Artery/Lesion type: C [place] vs. transplanted heart: N Associated angina: A Plan to address problem: Stable remains chest pain-free (3) Congestive heart failure- Likely acute on chronic systolic. Current Visit: No Status: Acute Qualifiers: Congestive heart failure type: C Congestive heart failure chronicity: C Plan to address problem: Obtain Echo. Recieved one dose of lasix. Has lower extremity edema that this is chronic venous stasis. Weeping. Was treated for infection no clear cellulitis. EF 15% in 2013 (4) Atrial fibrillation Stable we'll continue Coumadin and digoxin. No evidence of bleeding Continue to monitor (5) Hypertension Current Visit: No Status: Acute Qualifiers: Hypertension type: H Plan to address problem: Fair control continue current antihypertensives. 6. DVT/GI PROPHYLAXIS 7. Anticipate discharge in AM IF REMAINS FEVER FREE History Interval history: Patient seen and examined this morning still with mild shortness of breath. improving, Still with cough nonproductive. Denies any chest pain, nausea, vomiting, diarrhea No fever noted blood pressure controlled No adverse events reported to me by nursing staff Hospitalist Physical - Physical exam Narrative exam: VITAL SIGNS: Reviewed. GENERAL: The patient appeared well nourished and normally developed. Vital signs as documented. HEAD: No signs of head trauma. EYES: Pupils are equal. Extraocular motions intact. EARS: Hearing grossly intact. MOUTH: Oropharynx is normal. NECK: No adenopathy, no JVD. CHEST: Chest with crackles breath sounds bilaterally. No wheezes, CARDIAC: Regular rate and rhythm. S1 and S2, without murmurs, gallops, or rubs. VASCULAR: Trace Edema. Peripheral pulses normal and equal in all extremities. ABDOMEN: Soft, without detectable tenderness. No sign of distention. No rebound or guarding, and no masses palpated. Bowel Sounds normal. MUSCULOSKELETAL: Good range of motion of all major joints. Extremities without clubbing, cyanosis. Trace edema. NEUROLOGIC EXAM: Alert and oriented x 3. No focal sensory or strength deficits. Speech normal. Follows commands. PSYCHIATRIC: Mood normal. SKIN: Chronic vascular changes bilaterally. - Constitutional Vitals: Temp Pulse Resp BP Pulse Ox 99.1 F 88 18 149/73 99 01/28/17 10:00 01/28/17 14:30 01/28/17 14:30 01/28/17 10:00 01/28/17 09:41 General appearance: Present: no acute distress, well-nourished Results - Labs CBC & Chem 7: 01/28/17 04:19 01/28/17 04:19 Labs: Laboratory Last Values WBC 9.4 K/mm3 (4.5-11.0) 01/28/17 04:19 RBC 3.81 M/mm3 (3.65-5.03) 01/28/17 04:19 Hgb 11.8 gm/dl (11.8-15.2) 01/28/17 04:19 Hct 35.3 % (35.5-45.6) L 01/28/17 04:19 MCV 93 fl (84-94) 01/28/17 04:19 MCH 31 pg (28-32) 01/28/17 04:19 MCHC 33 % (32-34) 01/28/17 04:19 RDW 15.5 % (13.2-15.2) H 01/28/17 04:19 Plt Count 151 K/mm3 (140-440) 01/28/17 04:19 Lymph % (Auto) 11.9 % (13.4-35.0) L 01/27/17 03:17 [place] % (Auto) 5.4 % (0.0-7.3) 01/27/17 03:17 Eos % (Auto) 0.4 % (0.0-4.3) 01/27/17 03:17 Baso % (Auto) 0.2 % (0.0-1.8) 01/27/17 03:17 Lymph # 1.6 K/mm3 (1.2-5.4) 01/27/17 03:17 [place] # 0.7 K/mm3 (0.0-0.8) 01/27/17 03:17 Eos # 0.0 K/mm3 (0.0-0.4) 01/27/17 03:17 Baso # 0.0 K/mm3 (0.0-0.1) 01/27/17 03:17 Seg Neutrophils % 82.1 % (40.0-70.0) H 01/27/17 03:17 Seg Neutrophils # 10.9 K/mm3 (1.8-7.7) H 01/27/17 03:17 PT 16.2 Sec. (12.2-14.9) H 01/28/17 04:19 INR 1.31 (0.87-1.13) H 01/28/17 04:19 APTT 32.6 Sec. (24.2-36.6) 01/26/17 03:15 Sodium 140 mmol/L (137-145) 01/28/17 04:19 Potassium 3.6 mmol/L (3.6-5.0) 01/28/17 04:19 Chloride 100.2 mmol/L (98-107) 01/28/17 04:19 Carbon Dioxide 26 mmol/L (22-30) 01/28/17 04:19 Anion Gap 17 mmol/L 01/28/17 04:19 BUN 20 mg/dL (9-20) 01/28/17 04:19 Creatinine 1.0 mg/dL (0.8-1.5) 01/28/17 04:19 Estimated GFR > 60 ml/min 01/28/17 04:19 BUN/Creatinine Ratio 20.00 % 01/28/17 04:19 Glucose 90 mg/dL (75-100) 01/28/17 04:19 Lactic Acid 1.7 mmol/L (0.7-2.0) 01/26/17 09:09 Calcium 8.3 mg/dL (8.4-10.2) L 01/28/17 04:19 Troponin T < 0.010 ng/mL (0.00-0.029) 01/26/17 03:15
[2017-01-28] MEDS: COUMADIN PO SCH (17:55)
[2017-01-28] MEDS: ZITHROMAX 500 MG in NACL 0.9% 250ML 250 ML IV SCH (18:11)
[2017-01-29] MEDS: DUONEB 0.5 MG-3 MG/3 ML SOLN IH SCH ×2 (02:44→08:52)
[2017-01-29] MEDS: NACL 0.9% 1000 ML 1,000 ML IV SCH (05:40)
[2017-01-29 06:35] LABS: INR 1.41 (0.87-1.13)
[2017-01-29 08:59] VITALS: BP 150/87
[2017-01-29] MEDS: ZITHROMAX 500 MG in NACL 0.9% 250ML 250 ML IV SCH (09:29)
[2017-01-29] MEDS: LOVENOX SUB-Q SCH (09:31)
[2017-01-29] MEDS: COREG PO SCH (09:32)
[2017-01-29] MEDS: LANOXIN PO SCH (09:32)
[2017-01-29] MEDS: PEPCID PO SCH (09:33)
[2017-01-29] MEDS: LASIX PO SCH (09:33)
--- NOTE | 2017-01-29 11:06 | Discharge Summary ---
Providers - Providers Date of Admission: 01/26/17 08:53 Date of discharge: 01/29/17 Attending physician: MILAGROS GUNTER MD 01/26/17 14:17 Consult to Wound/ET Nurse [CONS] Routine Reason For Exam: wound eval for bilateral lower ext. 01/26/17 17:14 Physical Therapy Evaluation and Treat [CONS] Routine Comment: Reason For Exam: Gait Primary care physician: YAM CURER Hospitalization Reason for admission: pneumonia Condition: Good Hospital course: 81-year-old male with a history of hypertension congestive heart failure chronic venous stasis changes and lymphedema presents with a 4 day history of productive cough low-grade fever. Patient states he's been feeling a little more weak than usual otherwise no new concerns. Patient states he was coughing a lot and his live-in girlfriend told him to go to the emergency room. It was there that patient was found to have a left lower lobe pneumonia. And a white count of 19. His primary care physician Dr. loera. Present patient's hemodynamically stable breathing fine able to speak in full sentences and is not hypoxic at this time. The patient the patient was started azithromycin and also nebulizer treatment. His symptoms did improve significantly. He is noted to have an ejection fraction of 15% which persisted. He did receive a dose of Lasix a lot of the hospital was continued on Coumadin and digoxin. No other adverse events were noted. His clinically stable for discharge. Cultures were negative for any growth Discharge diagnosis (1)Healthcare associated bacterial pneumonia (2) CAD (coronary artery disease) (3) Congestive heart failure- Likely acute on chronic systolic. EF 15% in 2013 (4) Atrial fibrillation (5) Hypertension Disposition: DC/TX HOME UNDER HOME HEALTH Time spent for discharge: 35 mins Core Measure Documentation - Palliative Care Palliative Care/ Comfort Measures: Not Applicable - Core Measures Any of the following diagnoses?: heart failure - VTE Discharge Requirements Deep Vein Thrombosis/Pulmonary Embolism Present on Admission: No - Heart Failure Discharge Requirements PATSY/ARB for LVSD if EF <40%: Yes Beta romina at discharge: Yes Exam - Physical Exam Narrative exam: VITAL SIGNS: Reviewed. GENERAL: The patient appeared well nourished and normally developed. Vital signs as documented. HEAD: No signs of head trauma. EYES: Pupils are equal. Extraocular motions intact. EARS: Hearing grossly intact. MOUTH: Oropharynx is normal. NECK: No adenopathy, no JVD. CHEST: Chest with crackles breath sounds bilaterally. No wheezes, CARDIAC: Regular rate and rhythm. S1 and S2, without murmurs, gallops, or rubs. VASCULAR: Trace Edema. Peripheral pulses normal and equal in all extremities. ABDOMEN: Soft, without detectable tenderness. No sign of distention. No rebound or guarding, and no masses palpated. Bowel Sounds normal. MUSCULOSKELETAL: Good range of motion of all major joints. Extremities without clubbing, cyanosis. Trace edema. NEUROLOGIC EXAM: Alert and oriented x 3. No focal sensory or strength deficits. Speech normal. Follows commands. PSYCHIATRIC: Mood normal. SKIN: Chronic vascular changes bilaterally. - Constitutional Vitals: Temp Pulse Resp BP Pulse Ox 99.7 F H 78 16 150/87 93 01/29/17 08:00 01/29/17 09:32 01/29/17 08:56 01/29/17 09:32 01/29/17 08:00 Plan Activity: advance as tolerated, fall precautions Diet: low salt Special Instructions: record daily weights, record daily BP diary Additional Instructions: Follow with personal facsimile operator and PCP for inr check in 3-5 days. This can also be done by home health nurse Follow up with: ALINA LOERA MD [Staff Physician] - 3-5 Days PRIMARY CAREMD [Primary Care Provider] - 3-5 Days VENKATA CAMACHO MD [Staff Physician] - 3-5 Days HOMER MCCORD MD [Staff Physician] - 3-5 Days Forms: Warfarin Discharge Instruction Prescriptions: Albuterol Sulfate [Proair Respiclick] 90 mcg IH Q4HR PRN #2 [email or web address] PRN Reason: Wheezing Amoxicillin/K Clav Tab [Augmentin 875 mg] 1 tab PO Q12HR #20 tab Carvedilol [Coreg] 6.25 mg PO BID #60 tablet Doxycycline [Vibramycin CAP] 100 mg PO Q12HR #14 capsule Warfarin [Coumadin] 7.5 mg PO QDAY #30 tablet
== END 2017-01-29 12:17 | disposition home health service (06) | DRG 193 ==
LOC: ED 01:11 → 3A 08:53 → CC2 12:48
PROVIDERS: ADMIT Internal Medicine; ATTEND Internal Medicine
DX: J18.9 Pneumonia, unspecified organism (principal); I50.23 Acute on chronic systolic (congestive) heart failure; I11.0 Hypertensive heart disease with heart failure; I48.91 Unspecified atrial fibrillation; I87.2 Venous insufficiency (chronic) (peripheral); I25.10 Atherosclerotic heart disease of native coronary artery without angina pectoris; E03.9 Hypothyroidism, unspecified; Z87.891 Personal history of nicotine dependence; Z79.01 Long term (current) use of anticoagulants
CPT/HCPCS: 36415; 71020; 80048; 82140; 84484; 85025; 85027; 85610; 85730; 87040; 87400; 93005; 93010; 93306; 94640; 96365; 96367; 96372; J0456; J0696; J1650; J1940; J7030; J7050

== ENCOUNTER 2017-06-25 14:48 | Inpatient (IN) | payer MEDICARE ==
[2017-06-25 15:22] LABS: Basophils % (Auto) 0.3 % (0.0-1.8); Eosinophils % (Auto) 1.3 % (0.0-4.3); Hematocrit 33.9 % (35.5-45.6); Hemoglobin 11.6 gm/dl (11.8-15.2); Mean Corpuscular HGB Conc 34 % (32-34); Mean Corpuscular Hemoglobin 31 pg (28-32); Mean Corpuscular Volume 91 fl (84-94); Platelet Count 242 K/mm3 (140-440); Red Blood Count 3.73 M/mm3 (3.65-5.03); Red Cell Distribution Width 14.3 % (13.2-15.2); White Blood Count 7.4 K/mm3 (4.5-11.0)
[2017-06-25 15:31] LABS: INR 1.99 (0.87-1.13)
[2017-06-25 15:32] LABS: Partial Thromboplastin Time 41.7 Sec. (24.2-36.6)
[2017-06-25 15:43] LABS: Albumin 3.6 g/dL (3.9-5); BUN/Creatinine Ratio 19.16; Bilirubin,Total 1.1 mg/dL (0.1-1.2); Calcium 9.2 mg/dL (8.4-10.2); Chloride 99.1 mmol/L (98-107); Potassium 4.5 mmol/L (3.6-5.0); Total Protein 7.3 g/dL (6.3-8.2)
--- NOTE | 2017-06-25 16:45 | Emergency Department Report ---
HPI - General Chief Complaint: Extremity Problem,Nontraumatic Time Seen by Provider: 06/25/17 16:24 - HPI HPI: 82-year-old white male presents to ED with severe right leg pain, swelling, redness. Patient with a history of chronic venous stasis with frequent cellulitis of the legs. Patient is poorly kept, states for the past 3 days his legs have been swollen and draining purulent material. He denies any fever, chills. He states frequent hospitalization for his condition. ED Past Medical Hx - Past Medical History Previous Medical History?: Yes Hx Hypertension: Yes Hx Heart Attack/AMI: Yes Hx Congestive Heart Failure: Yes Hx Diabetes: No Hx Deep Vein Thrombosis: No Hx Pulmonary Embolism: No Hx Liver Disease: No Hx Renal Disease: No Hx Sickle Cell Disease: No Hx Arthritis: No Hx Seizures: No Hx Kidney Stones: No Hx Asthma: No Hx COPD: No Hx Tuberculosis: No Hx Dementia: No Hx HIV: No Additional medical history: chronic cellulitis BLE. hypothyroidism. CAD, afib, - Surgical History Hx Coronary Stent: No Hx Pacemaker: No Hx Internal Defibrillator: No Additional Surgical History: "jaw surgery" - Social History Smoking Status: Never Smoker Substance Use Type: None - Medications Home Medications: Home Medications Medication Instructions Recorded Confirmed Last Taken Type Furosemide [Lasix] 40 mg PO DAILY 09/30/13 06/25/17 06/25/17 History Levothyroxine [Synthroid] 88 mcg PO QAM 01/26/17 06/25/17 06/25/17 History Lisinopril [Zestril TAB] 10 mg PO QHS 01/26/17 06/25/17 06/24/17 History Pravastatin Sodium [Pravastatin] 20 mg PO QHS 01/26/17 06/25/17 06/24/17 History Carvedilol [Coreg] 6.25 mg PO BID #60 tablet 01/29/17 06/25/17 06/25/17 Rx Digoxin [Lanoxin] 0.125 mg PO QHS 06/25/17 06/25/17 06/24/17 History Warfarin [Coumadin] 7.5 mg PO QHS 06/25/17 06/25/17 06/24/17 History ED Review of Systems ROS: Stated complaint: RT LEG PAIN/CELLULITIS Other details as noted in HPI Comment: All other systems reviewed and negative Musculoskeletal: other (leg pain) Skin: change in color Physical Exam - Physical Exam Vital Signs: Vital Signs 06/25/17 14:58 Temperature 98.7 F Pulse Rate 61 Respiratory 20 Rate Blood Pressure 148/55 O2 Sat by Pulse 94 Oximetry Physical Exam: Gen. alert and oriented 3 in no distress Head atraumatic normocephalic Eyes PERR LA EOMI Chest regular rate and rhythm normal S1-S2 lungs clear bilaterally Abdomen soft nondistended Back no point tenderness paravertebral tenderness Neuro no focal deficit. Psych normal mood. Extremities: Bilateral leg swelling, redness worse on the right. With purulent draining material ED Course Vital Signs 06/25/17 14:58 Temperature 98.7 F Pulse Rate 61 Respiratory 20 Rate Blood Pressure 148/55 O2 Sat by Pulse 94 Oximetry ED Medical Decision Making - Lab Data Result diagrams: 06/25/17 15:09 06/25/17 15:09 Critical care attestation.: If time is entered above; I have spent that time in minutes in the direct care of this critically ill patient, excluding procedure time. ED Disposition Clinical Impression: Cellulitis of right leg Disposition: - OP ADMIT IP TO THIS HOSP Is pt being admited?: Yes Does the pt Need Aspirin: No Condition: Stable Referrals: ALINA KANG MD [Primary Care Provider] - 3-5 Days
--- NOTE | 2017-06-25 16:46 | Admit Criteria Form ---
Admission Criteria Documentation: CELLULITIS Clinical Indications for Admission to Inpatient Care (Place 'X' for any and all applicable criteria): Admission is indicated for ANY ONE of the following(1)(2)(3)(4)(5): [ X]I. Limb-threatening infection [ ]II. High-risk comorbid condition as indicated by ANY ONE of the following: [ ]a) Uncontrolled diabetes (eg, HbA1c greater than 10% (0.1)) [ ]b) Cirrhosis [ ]c) Neutropenia [ ]d) Asplenia [ ]e) Immunosuppression [ ]f) Symptomatic heart failure [ ]III. Failure of outpatient therapy as indicated by ALL of the following: [ ]a) Progression or no improvement after adequate trial (minimum of 48 hours, with longer period for stable lower extremity infection) [ ]b) Adequate antibiotic regimen as indicated by use of ANY ONE of the following: [ ]i) First-generation cephalosporin (e.g., cephalexin) [ ]ii) Antistaphylococcal penicillin (e.g., dicloxacillin) [ ]iii) Penicillin-allergic patient regimen (clindamycin, extended-spectrum fluoroquinolone, or doxycycline) [ ]iv) Resistant organism (eg, methicillin-resistant Staphylococcus aureus) regimen (6) [ ]c) Outpatient intravenous therapy regimen is not appropriate due to ANY ONE of the following. (7)(8)(9)(10): [ ]i) It was tried and was not successful (eg, progression of infection). [ ]ii) It is not available or cannot be arranged in a clinically appropriate time frame (e.g., the next day). [ ]iii) Clinical presentation (eg, acuity of infection, rapidity of progression, confirmed or suspected bacteremia) is judged to require ALL of the following: [ ]1) Immediate initiation of intravenous therapy ( eg, cannot wait for next day) [ ]2) Intensity of patient monitoring and observation (eg, vital sign measurement, checks for infection progression) that cannot be provided at other than inpatient level of care [ ]IV. Mental status changes [ ]V. Bacteremia [ ]. Hemodynamic instability [ ]VII. Suspected necrotizing soft tissue infection (e.g., gas in tissue)(11)( 12) [ ]VIII. Orbital infection (13)(14) [ ]IX. Associated surgical procedure (e.g., abscess drainage, debridement) not amenable to outpatient, emergency department, or observation care [ ]X. Cutaneous gangrene [ ]XI. High fever (temperature greater than 39.5 degrees C (103.1 degrees F) (oral)) not responsive to outpatient, emergency department, or observation care therapy [ ]XIII. Inpatient admission required rather than observation care (Also use Cellulitis: Observation Care as appropriate) because of ANY ONE of the following : [ ]a) Periorbital or perineal infection that is severe or worsening [ ]b) Severe pain requiring acute inpatient management [ ]c) IV fluid to replace significant ongoing (e.g., for over 24 hours) losses (greater than 3L/m2 per day) [ ]d) Compartment syndrome monitoring (17) [ ]e) Strict or protective (eg, laminar flow) isolation [ ]f) Urgent debridement or skin grafting [ ]g) Bone or joint debridement [ ]h) Immediate inpatient surgery [ ]i) Other condition, treatment or monitoring requiring inpatient admission Extended stay beyond goal length of stay may be needed for (1)(18): [ ]a) Necrotizing soft tissue infection or fasciitis [ ]b) Gram-negative infection [ ]c) Methicillin-resistant Staphylococcal aureus (MRSA) infection [ ]d) Peripheral venous insufficiency with cellulitis [ ]e) Extensive edema [ ]f) Sepsis or continued Hemodynamic instability [ ]g) Continued high fever or mental status change [ ]h) Bacteremia [ ]i) Active serious comorbid conditions ( eg, heart failure, renal insufficiency) The original [employer] content created by [employer] has been revised. The portions of the content which have been revised are identified through the use of italic text or in bold, and [facility] has neither reviewed nor approved the modified material. All other unmodified content is copyright [facility] Please see references footnoted in the original [facility] edition 2016 Admission Criteria Met: Yes
[2017-06-25] MEDS ORDERED: LASIX PO SCH (21:00)
[2017-06-25] MEDS ORDERED: LOVENOX SUB-Q SCH (21:00)
--- NOTE | 2017-06-25 21:04 | History and Physical Report ---
History of Present Illness Date of examination: 06/25/17 Date of admission: 06/25/17 19:04 Chief complaint: cellulitis right LE History of present illness: 82-year-old white male presents to ED with severe right leg pain, swelling, redness. Patient with a history of chronic venous stasis with frequent cellulitis of the legs. Patient is poorly kept, states for the past 3 days his legs have been swollen and draining purulent material. He denies any fever, chills. He states frequent hospitalization for his condition. Past History Past Medical History: atrial fib, hypertension Past Surgical History: No surgical history Social history: lives with family. denies: smoking, alcohol abuse, prescription drug abuse Family history: hypertension, stroke, other Medications and Allergies Allergies Allergy/AdvReac Type Severity Reaction Status Date / Time No Known Allergies Allergy Verified 10/30/16 12:15 Home Medications Medication Instructions Recorded Confirmed Last Taken Type Furosemide [Lasix] 40 mg PO DAILY 09/30/13 06/25/17 06/25/17 History Levothyroxine [Synthroid] 88 mcg PO QAM 01/26/17 06/25/17 06/25/17 History Lisinopril [Zestril TAB] 10 mg PO QHS 01/26/17 06/25/17 06/24/17 History Pravastatin Sodium [Pravastatin] 20 mg PO QHS 01/26/17 06/25/17 06/24/17 History Digoxin [Lanoxin] 0.125 mg PO QHS 06/25/17 06/25/17 06/24/17 History Warfarin [Coumadin] 7.5 mg PO QHS 06/25/17 06/25/17 06/24/17 History Clindamycin [Clindamycin CAP] 300 mg PO QID #40 capsule 06/28/17 Unknown Rx Active Meds: Active Medications Carvedilol (Coreg) 6.25 mg PO BID FOUZIA Digoxin (Lanoxin) 0.125 mg PO QHS FOUZIA Enoxaparin Sodium (Lovenox) 40 mg SUB-Q QDAY FOUZIA Furosemide (Lasix) 40 mg PO DAILY FOUZIA Levofloxacin/Dextrose (Levaquin 750mg/150ml) 750 mg in 150 mls @ 100 mls/hr IV Q24HR FOUZIA PRN Reason: Protocol Levothyroxine Sodium (Synthroid) 88 mcg PO QAM FOUZIA Lisinopril (Zestril) 10 mg PO QHS [facility] Miscellaneous Medication (Pravastatin Sodium [Pravastatin]) 20 mg PO QHS [facility] Review of systems Constitutional: Well Nouridhed and Well developed. Head: NC/ AT Eyes: Denies any visual impairments. No discharge from the eyes Nose: Denies any rhinorrhea or epistaxis Throats: Denies any post nasal drainage. Ears: Denies any hearing deficits Cardiovascular system: Denies any chest pain, shortness of breath, orthopnea, paroxysmal nocturnal dyspnea, or palpitation. Respiratory system: Denies any cough, difficulty breathing, wheezing, pleuritic chest pain, Gastrointestinal system: Denies any abdominal pain, nausea vomiting, hematemesis or melena. Neurological system: Denies any headache, slurred speech, facial droop, lateralizing weakness Genitalia system: Denies any dysuria, urinary frequency or urgency, urethral discharge Skin: No rashes, hyperpigmented spots. Hematological: Denies any cervical tenderness hemorrhages or petechia. Immunological: Denies any multiple septic spots, Lymphatic: Denies any generalized lymphadenopathy. Endocrine: Denies any polyuria, polydipsia, polyphagia. No heat or cold intolerance. Musculoskeletal system: No joint pain or swelling. Psych: No visual, tactile, auditory or hallucination Exam - Constitutional Vitals: Temp Pulse Resp BP Pulse Ox 98.7 F 65 15 164/66 95 06/25/17 14:58 06/25/17 19:38 06/25/17 19:38 06/25/17 19:38 06/25/17 19:38 Results - Labs CBC & Chem 7: 06/25/17 15:09 06/25/17 15:09 Assessment and Plan - Cellulitis of both lower extremities with the right was not the left - Atrial fibrillation - Pulmonary hypertension Admit iv antibiotics Local wound care anticoagulat Lovenox, Wound swab 2011, Cardiology consult ECHO DVT prophylaxis with Lovenox and GI with Pepcid
[2017-06-25] MEDS ORDERED: COREG PO SCH (22:00)
[2017-06-25] MEDS ORDERED: NON-FORMULARY (Pravastatin Sodium [Pravastatin] 20 MG) PO SCH (22:00)
[2017-06-25] MEDS ORDERED: LEVAQUIN 750MG/150ML 750 MG/150 ML BAG IV SCH ×2 (22:00)
[2017-06-25] MEDS: COREG PO SCH (22:39)
[2017-06-25] MEDS: ZOCOR PO SCH (22:39)
[2017-06-25] MEDS: LANOXIN PO SCH (22:39)
[2017-06-25] MEDS: ZESTRIL PO SCH (22:40)
[2017-06-26] MEDS: SYNTHROID PO SCH (06:19)
--- NOTE | 2017-06-26 08:30 | Progress Note ---
Assessment and Plan Assessment and plan: --Bilateral lower extremity cellulitis Chronic lymphedema; continue IV antibiotics, wound care, elevate the limb, rule out DVT --History of atrial fibrillation; rate controlled Continue current beta blockers --Chronic anticoagulation; with Coumadin Target INR 2-3. Closely monitor --Pulmonary hypertension; supportive care --DVT prophylaxis; patient on chronic anticoagulation --DC planning. Case management --Full CODE STATUS Closely monitor the patient and adjust the management as needed Plan of care discussed with the patient and his nurse History Interval history: Patient seen and evaluated this morning medical records reviewed Admitted for bilateral lower extremity cellulitis, chronic lymphedema On IV antibiotics and wound care Patient feels better no new complaints, vital signs reviewed Hospitalist Physical - Constitutional Vitals: Temp Pulse Resp BP Pulse Ox 98.3 F 70 18 163/65 94 06/25/17 22:50 06/25/17 22:50 06/25/17 22:50 06/25/17 22:50 06/25/17 22:50 General appearance: Present: no acute distress, well-nourished - EENT Eyes: Present: PERRL, EOM intact - Neck Neck: Present: supple, normal ROM - Respiratory Respiratory effort: normal Respiratory: bilateral: diminished, negative: rales, rhonchi, wheezing - Cardiovascular Rhythm: regular Heart Sounds: Present: S1 & S2 - Extremities Extremities: no ischemia, abnormal (chronic lymphedema/bilateral cellulitis/ erythema) Extremity abnormal: edema, erythema - Abdominal General gastrointestinal: soft, non-tender, non-distended, normal bowel sounds - Integumentary Integumentary: Present: clear, warm - Psychiatric Psychiatric: appropriate mood/affect, cooperative - Neurologic Neurologic: CNII-XII intact, moves all extremities Results - Labs CBC & Chem 7: 06/25/17 15:09 06/25/17 15:09 Labs: Laboratory Last Values WBC 7.4 K/mm3 (4.5-11.0) 06/25/17 15:09 RBC 3.73 M/mm3 (3.65-5.03) 06/25/17 15:09 Hgb 11.6 gm/dl (11.8-15.2) L 06/25/17 15:09 Hct 33.9 % (35.5-45.6) L 06/25/17 15:09 MCV 91 fl (84-94) 06/25/17 15:09 MCH 31 pg (28-32) 06/25/17 15:09 MCHC 34 % (32-34) 06/25/17 15:09 RDW 14.3 % (13.2-15.2) 06/25/17 15:09 Plt Count 242 K/mm3 (140-440) 06/25/17 15:09 Lymph % (Auto) 18.9 % (13.4-35.0) 06/25/17 15:09 [place] % (Auto) 11.1 % (0.0-7.3) H 06/25/17 15:09 Eos % (Auto) 1.3 % (0.0-4.3) 06/25/17 15:09 Baso % (Auto) 0.3 % (0.0-1.8) 06/25/17 15:09 Lymph # 1.4 K/mm3 (1.2-5.4) 06/25/17 15:09 [place] # 0.8 K/mm3 (0.0-0.8) 06/25/17 15:09 Eos # 0.1 K/mm3 (0.0-0.4) 06/25/17 15:09 Baso # 0.0 K/mm3 (0.0-0.1) 06/25/17 15:09 Seg Neutrophils % 68.4 % (40.0-70.0) 06/25/17 15:09 Seg Neutrophils # 5.1 K/mm3 (1.8-7.7) 06/25/17 15:09 PT 23.7 Sec. (12.2-14.9) H 06/25/17 15:09 INR 1.99 (0.87-1.13) H 06/25/17 15:09 APTT 41.7 Sec. (24.2-36.6) H 06/25/17 15:09 Sodium 140 mmol/L (137-145) 06/25/17 15:09 Potassium 4.5 mmol/L (3.6-5.0) 06/25/17 15:09 Chloride 99.1 mmol/L (98-107) 06/25/17 15:09 Carbon Dioxide 25 mmol/L (22-30) 06/25/17 15:09 Anion Gap 20 mmol/L 06/25/17 15:09 BUN 23 mg/dL (9-20) H 06/25/17 15:09 Creatinine 1.2 mg/dL (0.8-1.5) 06/25/17 15:09 Estimated GFR 58 ml/min 06/25/17 15:09 BUN/Creatinine Ratio 19.16 % 06/25/17 15:09 Glucose 108 mg/dL (75-100) H 06/25/17 15:09 Calcium 9.2 mg/dL (8.4-10.2) 06/25/17 15:09 Total Bilirubin 1.10 mg/dL (0.1-1.2) 06/25/17 15:09 AST 19 units/L (5-40) 06/25/17 15:09 ALT 15 units/L (7-56) 06/25/17 15:09 Alkaline Phosphatase 111 units/L (35-129) 06/25/17 15:09 Total Protein 7.3 g/dL (6.3-8.2) 06/25/17 15:09 Albumin 3.6 g/dL (3.9-5) L 06/25/17 15:09 Albumin/Globulin Ratio 1.0 % 06/25/17 15:09
[2017-06-26] MEDS: LASIX PO SCH (09:34)
[2017-06-26] MEDS: COREG PO SCH (09:35)
[2017-06-26] MEDS: COUMADIN PO SCH (18:23)
[2017-06-26] MEDS: CLEOCIN PO SCH ×2 (18:23→22:35)
[2017-06-26] MEDS ORDERED: COUMADIN PO SCH (22:00)
[2017-06-26] MEDS: ZOCOR PO SCH (22:35)
[2017-06-26] MEDS: LANOXIN PO SCH (22:35)
[2017-06-26] MEDS: ZESTRIL PO SCH (22:38)
[2017-06-27 05:06] LABS: INR 2.1 (0.87-1.13)
[2017-06-27] MEDS: SYNTHROID PO SCH (06:22)
[2017-06-27] MEDS: COREG PO SCH ×3 (06:23→21:58)
[2017-06-27] MEDS: CLEOCIN PO SCH ×4 (10:17→21:56)
[2017-06-27] MEDS: LASIX PO SCH (10:18)
--- NOTE | 2017-06-27 11:31 | Progress Note ---
Assessment and Plan Assessment and plan: --Bilateral lower extremity cellulitis Chronic lymphedema; continue IV antibiotics, wound care, elevate the limb, rule out DVT --History of atrial fibrillation; rate controlled Continue current beta blockers --Chronic anticoagulation; with Coumadin Target INR 2-3. Closely monitor --Pulmonary hypertension; supportive care --DVT prophylaxis; patient on chronic anticoagulation --DC planning. Case management --Full CODE STATUS Follow cultures, wound care recommendations Possible discharge in 1-2 days on oral antibiotics and outpatient versus inpatient wound care and PT Plan of care discussed with the patient and his nurse History Interval history: Patient seen and evaluated , medical records reviewed no new events reported by nursing staff, patient feels better Alert awake oriented 3 not in acute distress Lower extremity swelling significantly improved, dressing in place no new complaints, vital signs reviewed Hospitalist Physical - Constitutional Vitals: Temp Pulse Resp BP Pulse Ox 97.9 F 55 L 20 126/64 99 06/27/17 09:27 06/27/17 10:17 06/27/17 09:27 06/27/17 10:06/26/17 20:53 General appearance: Present: no acute distress, well-nourished - EENT Eyes: Present: PERRL, EOM intact - Neck Neck: Present: supple, normal ROM - Respiratory Respiratory effort: normal Respiratory: bilateral: diminished, negative: rales, rhonchi, wheezing - Cardiovascular Rhythm: regular Heart Sounds: Present: S1 & S2 - Extremities Extremities: abnormal (bilateral lower extremity chronic lymphedema and chronic hyperpigmentation) Extremity abnormal: edema, erythema - Abdominal General gastrointestinal: soft, non-tender, non-distended, normal bowel sounds - Integumentary Integumentary: Present: clear, warm (age-related changes) - Psychiatric Psychiatric: appropriate mood/affect, cooperative - Neurologic Neurologic: moves all extremities Results - Labs CBC & Chem 7: 06/25/17 15:09 06/25/17 15:09 Labs: Laboratory Last Values WBC 7.4 K/mm3 (4.5-11.0) 06/25/17 15:09 RBC 3.73 M/mm3 (3.65-5.03) 06/25/17 15:09 Hgb 11.6 gm/dl (11.8-15.2) L 06/25/17 15:09 Hct 33.9 % (35.5-45.6) L 06/25/17 15:09 MCV 91 fl (84-94) 06/25/17 15:09 MCH 31 pg (28-32) 06/25/17 15:09 MCHC 34 % (32-34) 06/25/17 15:09 RDW 14.3 % (13.2-15.2) 06/25/17 15:09 Plt Count 242 K/mm3 (140-440) 06/25/17 15:09 Lymph % (Auto) 18.9 % (13.4-35.0) 06/25/17 15:09 [place] % (Auto) 11.1 % (0.0-7.3) H 06/25/17 15:09 Eos % (Auto) 1.3 % (0.0-4.3) 06/25/17 15:09 Baso % (Auto) 0.3 % (0.0-1.8) 06/25/17 15:09 Lymph # 1.4 K/mm3 (1.2-5.4) 06/25/17 15:09 [place] # 0.8 K/mm3 (0.0-0.8) 06/25/17 15:09 Eos # 0.1 K/mm3 (0.0-0.4) 06/25/17 15:09 Baso # 0.0 K/mm3 (0.0-0.1) 06/25/17 15:09 Seg Neutrophils % 68.4 % (40.0-70.0) 06/25/17 15:09 Seg Neutrophils # 5.1 K/mm3 (1.8-7.7) 06/25/17 15:09 PT 24.7 Sec. (12.2-14.9) H 06/27/17 04:35 INR 2.10 (0.87-1.13) H 06/27/17 04:35 APTT 41.7 Sec. (24.2-36.6) H 06/25/17 15:09 Sodium 140 mmol/L (137-145) 06/25/17 15:09 Potassium 4.5 mmol/L (3.6-5.0) 06/25/17 15:09 Chloride 99.1 mmol/L (98-107) 06/25/17 15:09 Carbon Dioxide 25 mmol/L (22-30) 06/25/17 15:09 Anion Gap 20 mmol/L 06/25/17 15:09 BUN 23 mg/dL (9-20) H 06/25/17 15:09 Creatinine 1.2 mg/dL (0.8-1.5) 06/25/17 15:09 Estimated GFR 58 ml/min 06/25/17 15:09 BUN/Creatinine Ratio 19.16 % 06/25/17 15:09 Glucose 108 mg/dL (75-100) H 06/25/17 15:09 Calcium 9.2 mg/dL (8.4-10.2) 06/25/17 15:09 Total Bilirubin 1.10 mg/dL (0.1-1.2) 06/25/17 15:09 AST 19 units/L (5-40) 06/25/17 15:09 ALT 15 units/L (7-56) 06/25/17 15:09 Alkaline Phosphatase 111 units/L (35-129) 06/25/17 15:09 Total Protein 7.3 g/dL (6.3-8.2) 06/25/17 15:09 Albumin 3.6 g/dL (3.9-5) L 06/25/17 15:09 Albumin/Globulin Ratio 1.0 % 06/25/17 15:09
[2017-06-27] MEDS: COUMADIN PO SCH (17:46)
[2017-06-27] MEDS: LANOXIN PO SCH (21:56)
[2017-06-27] MEDS: ZOCOR PO SCH (21:56)
[2017-06-27] MEDS: ZESTRIL PO SCH (21:59)
[2017-06-27] MEDS ORDERED: LEVAQUIN PO SCH (22:00)
[2017-06-28 04:51] LABS: INR 2.46 (0.87-1.13)
[2017-06-28] MEDS: SYNTHROID PO SCH (05:53)
--- NOTE | 2017-06-28 08:25 | Progress Note ---
Assessment and Plan Assessment and plan: --Bradycardia; patient asymptomatic Will hold beta blockers, closely monitor --Bilateral lower extremity cellulitis Chronic lymphedema; continue IV antibiotics, wound care, elevate the limb, rule out DVT --History of atrial fibrillation; rate controlled Continue current beta blockers --Chronic anticoagulation; with Coumadin Target INR 2-3. Closely monitor --Pulmonary hypertension; supportive care --DVT prophylaxis; patient on chronic anticoagulation --DC planning. Case management --Full CODE STATUS Follow cultures, wound care recommendations Possible discharge in 1-2 days on oral antibiotics and outpatient versus inpatient wound care and PT Plan of care discussed with the patient and his nurse Hospitalist Physical - Constitutional Vitals: Temp Pulse Resp BP Pulse Ox 97.8 F 55 L 20 148/67 98 06/27/17 21:52 06/27/17 21:59 06/27/17 22:00 06/27/17 21:59 06/27/17 22:00 General appearance: Present: no acute distress, well-nourished Results - Labs CBC & Chem 7: 06/25/17 15:09 06/25/17 15:09 Labs: Laboratory Last Values WBC 7.4 K/mm3 (4.5-11.0) 06/25/17 15:09 RBC 3.73 M/mm3 (3.65-5.03) 06/25/17 15:09 Hgb 11.6 gm/dl (11.8-15.2) L 06/25/17 15:09 Hct 33.9 % (35.5-45.6) L 06/25/17 15:09 MCV 91 fl (84-94) 06/25/17 15:09 MCH 31 pg (28-32) 06/25/17 15:09 MCHC 34 % (32-34) 06/25/17 15:09 RDW 14.3 % (13.2-15.2) 06/25/17 15:09 Plt Count 242 K/mm3 (140-440) 06/25/17 15:09 Lymph % (Auto) 18.9 % (13.4-35.0) 06/25/17 15:09 [place] % (Auto) 11.1 % (0.0-7.3) H 06/25/17 15:09 Eos % (Auto) 1.3 % (0.0-4.3) 06/25/17 15:09 Baso % (Auto) 0.3 % (0.0-1.8) 06/25/17 15:09 Lymph # 1.4 K/mm3 (1.2-5.4) 06/25/17 15:09 [place] # 0.8 K/mm3 (0.0-0.8) 06/25/17 15:09 Eos # 0.1 K/mm3 (0.0-0.4) 06/25/17 15:09 Baso # 0.0 K/mm3 (0.0-0.1) 06/25/17 15:09 Seg Neutrophils % 68.4 % (40.0-70.0) 06/25/17 15:09 Seg Neutrophils # 5.1 K/mm3 (1.8-7.7) 06/25/17 15:09 PT 28.0 Sec. (12.2-14.9) H 06/28/17 03:52 INR 2.46 (0.87-1.13) H 06/28/17 03:52 APTT 41.7 Sec. (24.2-36.6) H 06/25/17 15:09 Sodium 140 mmol/L (137-145) 06/25/17 15:09 Potassium 4.5 mmol/L (3.6-5.0) 06/25/17 15:09 Chloride 99.1 mmol/L (98-107) 06/25/17 15:09 Carbon Dioxide 25 mmol/L (22-30) 06/25/17 15:09 Anion Gap 20 mmol/L 06/25/17 15:09 BUN 23 mg/dL (9-20) H 06/25/17 15:09 Creatinine 1.2 mg/dL (0.8-1.5) 06/25/17 15:09 Estimated GFR 58 ml/min 06/25/17 15:09 BUN/Creatinine Ratio 19.16 % 06/25/17 15:09 Glucose 108 mg/dL (75-100) H 06/25/17 15:09 Calcium 9.2 mg/dL (8.4-10.2) 06/25/17 15:09 Total Bilirubin 1.10 mg/dL (0.1-1.2) 06/25/17 15:09 AST 19 units/L (5-40) 06/25/17 15:09 ALT 15 units/L (7-56) 06/25/17 15:09 Alkaline Phosphatase 111 units/L (35-129) 06/25/17 15:09 Total Protein 7.3 g/dL (6.3-8.2) 06/25/17 15:09 Albumin 3.6 g/dL (3.9-5) L 06/25/17 15:09 Albumin/Globulin Ratio 1.0 % 06/25/17 15:09
[2017-06-28] MEDS: CLEOCIN PO SCH ×2 (08:54→10:00)
[2017-06-28] MEDS: LASIX PO SCH ×2 (08:55→10:00)
[2017-06-28 09:42] VITALS: BP 154/63
--- NOTE | 2017-06-28 12:41 | Discharge Summary ---
Providers - Providers Date of Admission: 06/25/17 19:04 Date of discharge: 06/28/17 Attending physician: CAT SMITH 06/25/17 21:08 Consult to Wound/ET Nurse [CONS] Routine Reason For Exam: wound eval venous ulcer right and left leg Primary care physician: ALINA KANG Hospitalization Reason for admission: bilateral lower extremity cellulitis Condition: Stable Hospital course: 82-year-old white male. Patient with multiple medical problems was admitted through emergency room with right lower extremity cellulitis and the pain Patient is noted to have bilateral chronic lymphedema with cellulitis follows with wound care Patient was evaluated admitted to the hospital and started on empiric antibiotics elevated the limb and supportive care Evaluated by wound care recommended local cream no open wound, spelling and symptoms significantly improved, wound care set up outpatient follow-up Today he is comfortable in bed no new complaints, swelling significantly improved alert awake oriented 3 Ambulation with support and tolerating oral nutrition. Case management has evaluated the patient and offered home health services, however the patient reported made that he already has a lot of family helping him and he does not need home health at this point Hemodynamically and clinically stable for discharge, follow-up with primary care physician and wound care per schedule Patient has mild bradycardia his heart rate running in higher 50s to high her 60s, which is his baseline and patient does not have any symptoms of chest pain dizziness or shortness of breath Discharge diagnosis; Asymptomatic bradycardia heart rate in 60s Bilateral lower extremity cellulitis Chronic lymphedema History of atrial fibrillation Chronic anticoagulation on Coumadin therapeutic INR Pulmonary hypertension - Disposition: DC- TO HOME OR SELFCARE Time spent for discharge: 31 min Core Measure Documentation - Palliative Care Palliative Care/ Comfort Measures: Not Applicable - Core Measures Any of the following diagnoses?: none Exam - Constitutional Vitals: Temp Pulse Resp BP Pulse Ox 97.9 F 57 L 20 154/63 98 06/28/17 09:40 06/28/17 09:40 06/28/17 09:40 06/28/17 09:40 06/27/17 22:00 General appearance: Present: no acute distress, well-nourished - EENT Eyes: Present: PERRL, EOM intact - Neck Neck: Present: supple, normal ROM - Respiratory Respiratory effort: normal Respiratory: negative: rales, rhonchi, wheezing - Cardiovascular Rhythm: regular Heart Sounds: Present: S1 & S2 - Extremities Extremities: no ischemia, abnormal (chronic lymphedema) - Abdominal General gastrointestinal: Present: soft, non-tender, non-distended, normal bowel sounds - Integumentary Integumentary: Present: clear, warm - Musculoskeletal Musculoskeletal: strength equal bilaterally - Psychiatric Psychiatric: appropriate mood/affect, cooperative - Neurologic Neurologic: CNII-XII intact, moves all extremities Plan Activity: advance as tolerated Diet: other (cardiac diet) Additional Instructions: out patient wound care per schedule. Chest pain or shortness of breath contact M.D. or go to emergency room Follow up with: ALINA KANG MD [Primary Care Provider] - 3-5 Days Prescriptions: Clindamycin [Clindamycin CAP] 300 mg PO QID #40 capsule
== END 2017-06-28 14:16 | disposition home or self-care (01) | DRG 603 ==
LOC: ED 14:48 → 4A 19:04 → CC2 22:23
PROVIDERS: ADMIT Family Medicine; ATTEND Internal Medicine
DX: L03.115 Cellulitis of right lower limb (principal); I48.91 Unspecified atrial fibrillation; I27.2 Other secondary pulmonary hypertension; I87.8 Other specified disorders of veins; I11.0 Hypertensive heart disease with heart failure; I50.9 Heart failure, unspecified; I25.10 Atherosclerotic heart disease of native coronary artery without angina pectoris; I89.0 Lymphedema, not elsewhere classified; R00.1 Bradycardia, unspecified; Z82.49 Family history of ischemic heart disease and other diseases of the circulatory system; Z82.3 Family history of stroke; L03.116 Cellulitis of left lower limb
CPT/HCPCS: 36415; 80053; 85025; 85610; 85730; 99285; J1650; J1956

== ENCOUNTER 2019-01-29 18:58 | Inpatient (IN) | payer MEDICARE ==
--- NOTE | 2019-01-29 19:27 | Emergency Department Report ---
Chief Complaint: Extremity Injury, Lower Stated Complaint: CELLULITITS RT LEG Time Seen by Provider: 01/29/19 19:23 - HPI History of Present Illness: mse completed - Exam Vital Signs: Vital Signs 01/29/19 19:22 Temperature 97.9 F Pulse Rate 91 H Respiratory 18 Rate Blood Pressure 133/67 O2 Sat by Pulse 96 Oximetry MSE screening note: Focused history and physical exam performed. Due to findings the following was ordered: ED Disposition for MSE Condition: Stable Referrals: PRIMARY CARE, [Primary Care Provider] - 3-5 Days
[2019-01-29 20:05] LABS: Hematocrit 33.9 % (35.5-45.6); Hemoglobin 11.3 gm/dl (11.8-15.2); Mean Corpuscular HGB Conc 34 % (32-34); Mean Corpuscular Volume 89 fl (84-94); Platelet Count 250 K/mm3 (140-440); Red Blood Count 3.79 M/mm3 (3.65-5.03); Red Cell Distribution Width 16.4 % (13.2-15.2)
--- NOTE | 2019-01-29 20:12 | XRay Report ---
PROCEDURE: XR TIBIA FIBULA 2V RT TECHNIQUE: Tibia-fibula 2 views HISTORY: pain leg; COMPARISONS: FINDINGS: No acute fracture identified. No dislocation seen. Joint spaces appear within normal limits. Atherosc lerotic vascular calcifications are noted IMPRESSION: Atherosclerosis No acute bony abnormality identified. This document is electronically signed by Andre Somers MD., January 29 2019 08:10:01 PM ET
[2019-01-29 20:30] LABS: Alanine Aminotransferase 18 units/L (7-56); Albumin 3.5 g/dL (3.9-5); BUN/Creatinine Ratio 18; Blood Urea Nitrogen 20 mg/dL (9-20); Calcium 8.9 mg/dL (8.4-10.2); Hemolysis Index 0
--- NOTE | 2019-01-29 20:39 | XRay Report ---
PROCEDURE: XR CHEST ROUTINE 2V TECHNIQUE: HISTORY: sob COMPARISONS: There is a prior exam from January 26, 2017 however not available for comparison at this ti me FINDINGS: Cardiac silhouette is moderately enlarged. Multiple mediastinal and hilar calcified foci are observed along with scattered pulmonary calcified granuloma. No confluent infiltrate identified. No pleural f luid collection seen. Pulmonary vasculature is unremarkable. IMPRESSION: Cardiomegaly Numerous calcifications within the mediastinum and reginald as well as pulmonary calcified granuloma. No acute-appearing pulmonary abnormality seen. This document is electronically signed by Andre Somers MD., January 29 2019 08:36:25 PM ET
--- NOTE | 2019-01-29 23:59 | Emergency Department Report ---
Upper Extremity - [facility] Chief Complaint: Extremity Injury, Lower Stated Complaint: CELLULITITS RT LEG Time Seen by Provider: 01/29/19 19:23 ED Review of Systems ROS: Stated complaint: CELLULITITS RT LEG Other details as noted in HPI ED Past Medical Hx - Past Medical History Hx Hypertension: Yes Hx Heart Attack/AMI: Yes Hx Congestive Heart Failure: Yes Hx Diabetes: No Hx Deep Vein Thrombosis: No Hx Pulmonary Embolism: No Hx Liver Disease: No Hx Renal Disease: No Hx Sickle Cell Disease: No Hx Arthritis: No Hx Seizures: No Hx Kidney Stones: No Hx Asthma: No Hx COPD: No Hx Tuberculosis: No Hx Dementia: No Hx HIV: No Additional medical history: chronic cellulitis BLE. hypothyroidism. CAD, afib, - Surgical History Hx Coronary Stent: No Hx Pacemaker: No Hx Internal Defibrillator: No Additional Surgical History: "jaw surgery" - Social History Smoking Status: Never Smoker Substance Use Type: Alcohol - Medications Home Medications: Home Medications Medication Instructions Recorded Confirmed Last Taken Type Furosemide [Lasix] 40 mg PO DAILY 09/30/13 06/25/17 06/25/17 History Levothyroxine [Synthroid] 88 mcg PO QAM 01/26/17 06/25/17 06/25/17 History Lisinopril [Zestril TAB] 10 mg PO QHS 01/26/17 06/25/17 06/24/17 History Pravastatin Sodium [Pravastatin] 20 mg PO QHS 01/26/17 06/25/17 06/24/17 History Digoxin [Lanoxin] 0.125 mg PO QHS 06/25/17 06/25/17 06/24/17 History Warfarin [Coumadin] 7.5 mg PO QHS 06/25/17 06/25/17 06/24/17 History Clindamycin [Clindamycin CAP] 300 mg PO QID #40 capsule 06/28/17 Unknown Rx Upper Extremity Exam - Exam General: Vital signs noted. No distress. Alert and acting appropriately. ED Course Vital Signs 01/29/19 19:22 Temperature 97.9 F Pulse Rate 91 H Respiratory 18 Rate Blood Pressure 133/67 O2 Sat by Pulse 96 Oximetry ED Medical Decision Making - Lab Data Result diagrams: 01/29/19 19:53 01/29/19 19:53 Critical care attestation.: If time is entered above; I have spent that time in minutes in the direct care of this critically ill patient, excluding procedure time. ED Disposition Condition: Stable Referrals: PRIMARY CARE, [Primary Care Provider] - 3-5 Days
--- NOTE | 2019-01-29 23:59 | History and Physical Report ---
History of Present Illness Date of examination: 01/29/19 History of present illness: 83-year-old man with a history of hypertension, A. fib, stroke, hypothyroidism, coronary artery disease comes emergency room with complaints of increased redness in the right leg, increased drainage. Patient denies a history of CHF. He denies any fever or chills Review of systems Constitutional: no weight loss, chills, fever Ears, eyes, nose, mouth and throat: no nasal congestion, no nasal discharge, no sinus pressure, no vision change, no red eye. Neck: No neck pain or rigidity. Cardiovascular: no palpitations, chest pain Respiratory: no cough, shortness of breath Gastrointestinal: no hematochezia, abdominal pain Genitourinary : no frequency , no hematuria Musculoskeletal: no joint swelling or muscle ache Integumentary: no rash, no pruritis Neurological: no parathesias, no focal weakness Endocrine: no cold or heat intolerance, no polyuria or polydipsia Hematologic/Lymphatic: no easy bruising, no easy bleeding, no gland swelling Allergic/Immunologic: no urticaria, no angioedema. PAST MEDICAL HISTORY:hypertension, A. fib, stroke PAST SURGICAL HISTORY: Jaw SOCIAL HISTORY: Denies alcohol, drugs, tobacco FAMILY HISTORY: Hypertension Medications and Allergies Allergies Allergy/AdvReac Type Severity Reaction Status Date / Time No Known Allergies Allergy Verified 10/30/16 12:15 Home Medications Medication Instructions Recorded Confirmed Last Taken Type Furosemide [Lasix] 40 mg PO DAILY 09/30/13 06/25/17 06/25/17 History Levothyroxine [Synthroid] 88 mcg PO QAM 01/26/17 06/25/17 06/25/17 History Lisinopril [Zestril TAB] 10 mg PO QHS 01/26/17 06/25/17 06/24/17 History Pravastatin Sodium [Pravastatin] 20 mg PO QHS 01/26/17 06/25/17 06/24/17 History Digoxin [Lanoxin] 0.125 mg PO QHS 06/25/17 06/25/17 06/24/17 History Warfarin [Coumadin] 7.5 mg PO QHS 06/25/17 06/25/17 06/24/17 History Clindamycin [Clindamycin CAP] 300 mg PO QID #40 capsule 06/28/17 Unknown Rx Exam - Physical Exam Narrative exam: General Apperance: The patient lying in bed, breathing comfortable HEENT: Normocephalic, atraumatic. Pupils equally round and reactive to light, EOMI, no sclericterus or JVD or thyromegaly or nodule. , no carotid bruit, mucous membranes moist, no exudate or erythema Heart: S1-S2, regular is rhythm Lungs: Clear to auscultation bilaterally, breathing comfortable Abdomen: Positive bowel sounds, soft, nontender, nondistended, no organomegaly Extremities: Right leg swelling, positive erythema, watery discharge No cyanosis clubbing Skin: no rash, nodule, warm and dry Neuro: cranial nerves 2-12 intact, speech is fluent, motor/sensory intact - Constitutional Vitals: Temp Pulse Resp BP Pulse Ox 97.9 F 91 H 18 133/67 96 01/29/19 19:22 01/29/19 19:22 01/29/19 19:22 01/29/19 19:22 01/29/19 19:22 Results - Labs CBC & Chem 7: 01/29/19 19:53 01/29/19 19:53 Labs: Abnormal lab results 01/29/19 01/29/19 01/29/19 Range/Units 19:53 19:53 19:53 Hgb 11.3 L (11.8-15.2) gm/dl Hct 33.9 L (35.5-45.6) % RDW 16.4 H (13.2-15.2) % NT-Pro-B Natriuret Pep 6113 H (0-900) pg/mL Albumin 3.5 L (3.9-5) g/dL - Imaging and Cardiology Chest x-ray: report reviewed Assessment and Plan xray of tib/fib reviewed Assessment Cellulitis of the right leg hypertension, A. fib on Coumadin History of stroke Thyroidism Plan Admit to medicine start IV Zosyn, follow cultures Check PT/INR, restart outpatient medications DVT prophylaxis, consult wound care
--- NOTE | 2019-01-30 00:30 | Emergency Department Report ---
HPI - General Chief Complaint: Extremity Injury, Lower Time Seen by Provider: 01/29/19 19:23 - HPI HPI: 83-year-old male initially on chronic venous stasis, frequent cellulitis, both legs. Today he presented with worsening right leg pain, swell ing, purulent drainage, and redness. He has seen his PCP, but stated he was not giving any medications for his symptoms. He rates his symptoms today as severe in severity. He denies any alleviating factors but states movement as an exacerbating factor. He was last admitted in 2017 for similar symptoms. This current leg drainage has started for the past week, worse today. ED Past Medical Hx - Past Medical History Hx Hypertension: Yes Hx Heart Attack/AMI: Yes Hx Congestive Heart Failure: Yes Hx Diabetes: No Hx Deep Vein Thrombosis: No Hx Pulmonary Embolism: No Hx Liver Disease: No Hx Renal Disease: No Hx Sickle Cell Disease: No Hx Arthritis: No Hx Seizures: No Hx Kidney Stones: No Hx Asthma: No Hx COPD: No Hx Tuberculosis: No Hx Dementia: No Hx HIV: No Additional medical history: chronic cellulitis BLE. hypothyroidism. CAD, afib, - Surgical History Hx Coronary Stent: No Hx Pacemaker: No Hx Internal Defibrillator: No Additional Surgical History: "jaw surgery" - Social History Smoking Status: Never Smoker Substance Use Type: Alcohol - Medications Home Medications: Home Medications Medication Instructions Recorded Confirmed Last Taken Type Furosemide [Lasix] 40 mg PO DAILY 09/30/13 06/25/17 06/25/17 History Levothyroxine [Synthroid] 88 mcg PO QAM 01/26/17 06/25/17 06/25/17 History Lisinopril [Zestril TAB] 10 mg PO QHS 01/26/17 06/25/17 06/24/17 History Pravastatin Sodium [Pravastatin] 20 mg PO QHS 01/26/17 06/25/17 06/24/17 History Digoxin [Lanoxin] 0.125 mg PO QHS 06/25/17 06/25/17 06/24/17 History Warfarin [Coumadin] 7.5 mg PO QHS 06/25/17 06/25/17 06/24/17 History Clindamycin [Clindamycin CAP] 300 mg PO QID #40 capsule 06/28/17 Unknown Rx ED Review of Systems ROS: Stated complaint: CELLULITITS RT LEG Other details as noted in HPI Constitutional: denies: chills, fever Eyes: denies: eye pain, eye discharge, vision change ENT: denies: ear pain, throat pain Respiratory: denies: cough, shortness of breath, wheezing Cardiovascular: denies: chest pain, palpitations Endocrine: no symptoms reported Gastrointestinal: denies: abdominal pain, nausea, diarrhea Genitourinary: denies: urgency, dysuria Musculoskeletal: joint swelling, myalgia. denies: back pain, arthralgia Skin: denies: rash, lesions Neurological: denies: headache, weakness, paresthesias Psychiatric: denies: anxiety, depression Hematological/Lymphatic: denies: easy bleeding, easy bruising Physical Exam - Physical Exam Vital Signs: Vital Signs 01/29/19 19:22 Temperature 97.9 F Pulse Rate 91 H Respiratory 18 Rate Blood Pressure 133/67 O2 Sat by Pulse 96 Oximetry Physical Exam: - General Limitations: No Limitations General appearance: alert, in no apparent distress - Head Head exam: Present: atraumatic, normocephalic - Eye Eye exam: Present: normal appearance - ENT ENT exam: Present: mucous membranes moist - Neck Neck exam: Present: normal inspection - Respiratory Respiratory exam: Present: normal lung sounds bilaterally. Absent: respiratory distress - Cardiovascular Cardiovascular Exam: Present: regular rate, normal rhythm. Absent: systolic murmur, diastolic murmur, rubs, gallop - GI/Abdominal GI/Abdominal exam: Present: soft, normal bowel sounds - Extremities Exam Extremities exam: Present: normal inspection - Back Exam Back exam: Present: normal inspection - Neurological Exam Neurological exam: Present: alert, oriented X3 - Psychiatric Psychiatric exam: Present: normal affect, normal mood - Skin Skin exam: Present: Bilateral lower extremity swelling, worse on the right where the swelling is accompanied with erythema, purulent drainage. ED Course Vital Signs 01/29/19 19:22 Temperature 97.9 F Pulse Rate 91 H Respiratory 18 Rate Blood Pressure 133/67 O2 Sat by Pulse 96 Oximetry ED Medical Decision Making - Lab Data Result diagrams: 01/29/19 19:53 01/29/19 19:53 Critical care attestation.: If time is entered above; I have spent that time in minutes in the direct care of this critically ill patient, excluding procedure time. ED Disposition Clinical Impression: Cellulitis and abscess of right leg Disposition: DC-09 OP ADMIT IP TO THIS HOSP Is pt being admited?: Yes Does the pt Need Aspirin: Yes Condition: Stable Referrals: PRIMARY CARE,MD [Primary Care Provider] - 3-5 Days
[2019-01-30] MEDS ORDERED: VANCOMYCIN/NS 1 GM/250 ML 1 GM/250 ML BAG IV ONE (01:00)
[2019-01-30] MEDS ORDERED: TYLENOL PO PRN (01:07)
[2019-01-30] MEDS ORDERED: SODIUM CHLORIDE FLUSH SYRINGE 10 ML IV PRN (01:07)
[2019-01-30] MEDS ORDERED: ZOFRAN IV PRN (01:07)
[2019-01-30 03:13] LABS: INR 1.82 (0.87-1.13)
[2019-01-30 03:14] LABS: Partial Thromboplastin Time 38.8 Sec. (24.2-36.6)
[2019-01-30] MEDS: ZOSYN/NS 3.375GM/50ML 3.375 GM/50 ML BAG IV SCH ×3 (06:04→21:15)
[2019-01-30] MEDS: SYNTHROID PO SCH (06:08)
[2019-01-30 06:20] LABS: Basophils # (Auto) 0.1 K/mm3 (0.0-0.1); Basophils % (Auto) 0.6 % (0.0-1.8); Eosinophils # (Auto) 0.2 K/mm3 (0.0-0.4); Eosinophils % (Auto) 1.6 % (0.0-4.3); Hematocrit 36.1 % (35.5-45.6); Hemoglobin 11.9 gm/dl (11.8-15.2); Lymphocytes # (Auto) 1.9 K/mm3 (1.2-5.4); Lymphocytes % (Auto) 20.3 % (13.4-35.0); Mean Corpuscular HGB Conc 33 % (32-34); Mean Corpuscular Volume 90 fl (84-94); Monocytes # (Auto) 0.6 K/mm3 (0.0-0.8); Monocytes % (Auto) 6.4 % (0.0-7.3); Platelet Count 256 K/mm3 (140-440); Red Blood Count 4.02 M/mm3 (3.65-5.03); Red Cell Distribution Width 16.7 % (13.2-15.2)
[2019-01-30 06:47] LABS: BUN/Creatinine Ratio 19; Blood Urea Nitrogen 19 mg/dL (9-20); Hemolysis Index 15
[2019-01-30] MEDS ORDERED: COUMADIN PO ONE (07:00)
[2019-01-30] MEDS: SODIUM CHLORIDE FLUSH SYRINGE 10 ML IV SCH ×2 (09:25→21:17)
[2019-01-30] MEDS: LASIX PO SCH (09:25)
[2019-01-30] MEDS ORDERED: LOVENOX SUB-Q SCH (10:00)
--- NOTE | 2019-01-30 11:00 | Vascular Lab Report ---
PROCEDURE: VL VENOUS DUPLEX LE RT TECHNIQUE: Baig scale, color and pulsed Doppler ultrasound with color flow and spectral analysis eval uation of right lower extremity was performed to assess for deep vein thrombosis. HISTORY: pain RLE COMPARISONS: None currently available. FINDINGS: RIGHT extremity: There is normal grayscale appearance and compressibility. Normal phasic pulsed Doppler and normal col or Doppler flow are visualized. The interrogated vessels show normal augmentation. IMPRESSION: * No evidence for DVT. This document is electronically signed by Jose Guadalupe Finnegan MD., January 30 2019 10:58:14 AM ET
--- NOTE | 2019-01-30 12:37 | Progress Note ---
Assessment and Plan Assessment and plan: 83-year-old man with a history of hypertension, A. fib, stroke, hypothyroidism, coronary artery disease,CHF EF 30-35% per echo in january 2017 comes emergency room with complaints of increased redness in the right leg, increased drainage. He denies any fever or chills. Bilateral lower ext cellulitis with poor wound healing -Continue abx, Vascular consult. No DVT noted. Wound care consult. On review of records this has been ongoing since 2017. Patient and family unable to give me much information of p ast follow up. PT Pulmonary calcified granuloma- Outpatient pulmonary follow up Atrial fibraillation- Rate controlled, continue Coumadin Secondary Hypercoagulable state- Continue Coumadin CVA per hx Hypothyrodism- continue synthroid Severe Pulmonary HTN Dilated Left Atrium-Outpatient cardiology eval Stable Systolic Congestive heart failure-Continue lasix DVT/GI prophy Plan discussed with patient and son. History Interval history: Patient seen and examined, admitted overnight with bilateral lower ext poor healing wound and difficulty ambulating. Reports improvement in pain, denies any fever. no other adverse event reported by nursing staff Hospitalist Physical - Physical exam Narrative exam: VITAL SIGNS: Reviewed. GENERAL: The patient appeared well nourished and normally developed, Vital signs as documented. HEAD: No signs of head trauma. EYES: Pupils are equal. Extraocular motions intact. EARS: Hearing grossly intact. MOUTH: Oropharynx is normal. NECK: No adenopathy, no JVD. CHEST: Chest with clear breath sounds bilaterally. No wheezes, rales, or rhonchi. CARDIAC: Irregular regular. S1 and S2, without murmurs, gallops, or rubs. VASCULAR: + Edema naveen lower ext. Peripheral pulses normal and equal in all extremities. ABDOMEN: Soft, non tender and non distended. No rebound or guarding, and no masses palpated. Bowel Sounds normal. MUSCULOSKELETAL: Good range of motion of all major joints. Extremities without clubbing, cyanosis. positive bilateral lower ext edema. NEUROLOGIC EXAM: Alert and oriented x 3. No focal sensory or strength deficits. Speech normal. Follows commands. PSYCHIATRIC: Mood normal. SKIN: Bilateral lower ext edema, chronic venous changes, draining lesion right lower ext. - Constitutional Vitals: Temp Pulse Resp BP Pulse Ox 98.5 F 119 H 18 140/81 91 01/30/19 08:36 01/30/19 08:36 01/30/19 08:36 01/30/19 08:36 01/30/19 08:36 Results - Labs CBC & Chem 7: 01/30/19 05:43 01/30/19 05:43 Labs: Laboratory Last Values WBC 9.4 K/mm3 (4.5-11.0) 01/30/19 05:43 RBC 4.02 M/mm3 (3.65-5.03) 01/30/19 05:43 Hgb 11.9 gm/dl (11.8-15.2) 01/30/19 05:43 Hct 36.1 % (35.5-45.6) 01/30/19 05:43 MCV 90 fl (84-94) 01/30/19 05:43 MCH 30 pg (28-32) 01/30/19 05:43 MCHC 33 % (32-34) 01/30/19 05:43 RDW 16.7 % (13.2-15.2) H 01/30/19 05:43 Plt Count 256 K/mm3 (140-440) 01/30/19 05:43 Lymph % (Auto) 20.3 % (13.4-35.0) 01/30/19 05:43 [place] % (Auto) 6.4 % (0.0-7.3) 01/30/19 05:43 Eos % (Auto) 1.6 % (0.0-4.3) 01/30/19 05:43 Baso % (Auto) 0.6 % (0.0-1.8) 01/30/19 05:43 Lymph # 1.9 K/mm3 (1.2-5.4) 01/30/19 05:43 [place] # 0.6 K/mm3 (0.0-0.8) 01/30/19 05:43 Eos # 0.2 K/mm3 (0.0-0.4) 01/30/19 05:43 Baso # 0.1 K/mm3 (0.0-0.1) 01/30/19 05:43 Seg Neutrophils % 71.1 % (40.0-70.0) H 01/30/19 05:43 Seg Neutrophils # 6.7 K/mm3 (1.8-7.7) 01/30/19 05:43 PT 22.3 Sec. (12.2-14.9) H 01/30/19 01:38 INR 1.82 (0.87-1.13) H 01/30/19 01:38 APTT 38.8 Sec. (24.2-36.6) H 01/30/19 01:38 Sodium 144 mmol/L (137-145) 01/30/19 05:43 Potassium 4.0 mmol/L (3.6-5.0) 01/30/19 05:43 Chloride 105.9 mmol/L (98-107) 01/30/19 05:43 Carbon Dioxide 25 mmol/L (22-30) 01/30/19 05:43 Anion Gap 17 mmol/L 01/30/19 05:43 BUN 19 mg/dL (9-20) 01/30/19 05:43 Creatinine 1.0 mg/dL (0.8-1.5) 01/30/19 05:43 Estimated GFR > 60 ml/min 01/30/19 05:43 BUN/Creatinine Ratio 19 % 01/30/19 05:43 Glucose 94 mg/dL (75-100) 01/30/19 05:43 Calcium 9.0 mg/dL (8.4-10.2) 01/30/19 05:43 Total Bilirubin 0.70 mg/dL (0.1-1.2) 01/29/19 19:53 AST 20 units/L (5-40) 01/29/19 19:53 ALT 18 units/L (7-56) 01/29/19 19:53 Alkaline Phosphatase 95 units/L (35-129) 01/29/19 19:53 NT-Pro-B Natriuret Pep 6113 pg/mL (0-900) H 01/29/19 19:53 Total Protein 7.1 g/dL (6.3-8.2) 01/29/19 19:53 Albumin 3.5 g/dL (3.9-5) L 01/29/19 19:53 Albumin/Globulin Ratio 1.0 % 01/29/19 19:53 - Imaging and Cardiology Chest x-ray: image reviewed (granuloma bilateral, hilia and pulmonary calcifications)
[2019-01-30] MEDS: ZESTRIL PO SCH (21:16)
[2019-01-30] MEDS: PRAVACHOL PO SCH (21:17)
[2019-01-30] MEDS: LANOXIN PO SCH (21:17)
[2019-01-30] MEDS ORDERED: COUMADIN PO SCH (22:00)
[2019-01-31 04:49] LABS: INR 1.76 (0.87-1.13)
[2019-01-31] MEDS: ZOSYN/NS 3.375GM/50ML 3.375 GM/50 ML BAG IV SCH ×3 (05:41→22:52)
[2019-01-31] MEDS: SYNTHROID PO SCH (05:41)
[2019-01-31] MEDS ORDERED: COUMADIN PO SCH ×3 (09:10→17:00)
--- NOTE | 2019-01-31 09:31 | Consultation ---
History of Present Illness - Reason for Consult Consult date: 01/31/19 right lower extremity nonhealing wound - History of Present Illness Patient with a history of chronic recurrent right lower extremity wounds. Additionally, the patient states that he had a heel wound that took approximatel y 6 months to heal. On examination, there is asymmetric enlargement of his right calf with cellulitis. Patient has elicited and staining, dry skin consistent with significant venous insufficiency. Past History Past Medical History: other (recurrent lower extremity wounds) Social history: no significant social history Family history: no significant family history Medications and Allergies Allergies Allergy/AdvReac Type Severity Reaction Status Date / Time No Known Allergies Allergy Verified 10/30/16 12:15 Home Medications Medication Instructions Recorded Confirmed Last Taken Type Furosemide [Lasix] 40 mg PO DAILY 09/30/13 01/30/19 06/25/17 History Levothyroxine [Synthroid] 88 mcg PO QAM 01/26/17 01/30/19 06/25/17 History Lisinopril [Zestril TAB] 10 mg PO QHS 01/26/17 01/30/19 06/24/17 History Pravastatin Sodium [Pravastatin] 20 mg PO QHS 01/26/17 01/30/19 06/24/17 History Digoxin [Lanoxin] 0.125 mg PO QHS 06/25/17 01/30/19 06/24/17 History Warfarin [Coumadin] 10 mg PO DAILY 06/25/17 01/30/19 06/24/17 History Clindamycin [Clindamycin CAP] 300 mg PO QID #40 capsule 06/28/17 01/30/19 Unknown Rx Coumadin 5 mg PO DAILY 01/30/19 01/30/19 Unknown History Active Meds: Active Medications Acetaminophen (Tylenol) 650 mg PO Q4H PRN PRN Reason: Pain MILD(1-3)/Fever >100.5/SALAZAR Digoxin (Lanoxin) 0.125 mg PO QHS [facility] Last Admin: 01/30/19 21:17 Dose: 0.125 mg Documented by: Furosemide (Lasix) 40 mg PO DAILY [facility] Last Admin: 01/30/19 09:25 Dose: 40 mg Documented by: Piperacillin Sod/Tazobactam Sod (Zosyn/Ns 3.375gm/50ml) 3.375 gm in 50 mls @ 100 mls/hr IV Q8HR [facility]; Protocol Last Admin: 01/31/19 05:41 Dose: 100 mls/hr Documented by: Levothyroxine Sodium (Synthroid) 88 mcg PO QAM@0600 [facility] Last Admin: 01/31/19 05:41 Dose: 88 mcg Documented by: Lisinopril (Zestril) 10 mg PO QHS [facility] Last Admin: 01/30/19 21:16 Dose: 10 mg Documented by: Ondansetron HCl (Zofran) 4 mg IV Q4H PRN PRN Reason: Nausea And Vomiting Pravastatin Sodium (Pravachol) 20 mg PO QHS [facility] Last Admin: 01/30/19 21:17 Dose: 20 mg Documented by: Sodium Chloride (Sodium Chloride Flush Syringe 10 Ml) 10 ml IV BID [facility] Last Admin: 01/30/19 21:17 Dose: 10 ml Documented by: Sodium Chloride (Sodium Chloride Flush Syringe 10 Ml) 10 ml IV PRN PRN PRN Reason: LINE FLUSH Warfarin Sodium (Coumadin) 5 mg PO SuSa@1700 [facility] Warfarin Sodium (Coumadin) 10 mg PO MoTuWeThFr@1700 [facility] Review of Systems All systems: negative Exam - Constitutional Vitals: Temp Pulse Resp BP Pulse Ox 99.0 F 95 H 18 120/60 96 01/31/19 08:16 01/31/19 08:16 01/31/19 08:16 01/31/19 08:16 01/31/19 08:16 General appearance: Present: no acute distress - EENT Eyes: Present: EOM intact ENT: hearing intact - Neck Neck: Present: supple, normal ROM - Respiratory Respiratory effort: normal - Extremities Extremities: abnormal Extremity abnormal: edema, pulses diminished - Abdominal General gastrointestinal: Present: deferred Male genitourinary: Present: deferred - Rectal Rectal Exam: deferred - Psychiatric Psychiatric: appropriate mood/affect Results - Labs CBC & Chem 7: 01/30/19 05:43 01/30/19 05:43 Labs: Abnormal lab results 01/31/19 Range/Units 04:10 PT 21.7 H (12.2-14.9) Sec. INR 1.76 H (0.87-1.13) Assessment and Plan Given the patient's history of recurrent cellulitis and the sequela of venous insufficiency, the patient will need a venous ultrasound with reflux. Given the patient's history of a slow to heal heel wound and diminished pedal pulses, the patient will need arterial duplex with ABIs.
[2019-01-31] MEDS: LASIX PO SCH (09:45)
[2019-01-31] MEDS: SODIUM CHLORIDE FLUSH SYRINGE 10 ML IV SCH ×2 (09:46→22:52)
--- NOTE | 2019-01-31 15:10 | Progress Note ---
Assessment and Plan Assessment and plan: 83-year-old man with a history of hypertension, A. fib, stroke, hypothyroidism, coronary artery disease,CHF EF 30-35% per echo in january 2017 comes emergency room with complaints of increased redness in the right leg, increased drainage. He denies any fever or chills. Bilateral lower ext cellulites with poor wound healing -Continue abx, Vascular consult noted, plan for arterial duplex with ABIs. No DVT noted. Wound care consult. On review of records this has been ongoing since 2017. Patient and magdai ly unable to give me much information of past follow up. PT eval and treat PVD: Management per Vascular. Pulmonary calcified granuloma- Outpatient pulmonary follow up Atrial fibrillation- Rate controlled, continue Coumadin Secondary Hypercoagulable state- Continue Coumadin CVA per hx: No acute changes noted Hypothyroidism- continue synthroid Severe Pulmonary HTN: STABLE Dilated Left Atrium-Outpatient cardiology eval Stable Chronic Systolic Congestive heart failure-Continue lasix DVT/GI prophy Plan discussed with patient History Interval history: Patient seen and examined, admitted with bilateral lower ext poor healing wound and difficulty ambulating. Reports improvement in pain, denies any fever. no other adverse event reported by nursing staff Hospitalist Physical - Physical exam Narrative exam: VITAL SIGNS: Reviewed. GENERAL: The patient appeared well nourished and normally developed, Vital signs as documented. HEAD: No signs of head trauma. EYES: Pupils are equal. Extraocular motions intact. EARS: Hearing grossly intact. MOUTH: Oropharynx is normal. NECK: No adenopathy, no JVD. CHEST: Chest with clear breath sounds bilaterally. No wheezes, rales, or rhonchi. CARDIAC: Irregular regular. S1 and S2, without murmurs, gallops, or rubs. VASCULAR: + Edema naveen lower ext. Peripheral pulses normal and equal in all extremities. ABDOMEN: Soft, non tender and non distended. No rebound or guarding, and no masses palpated. Bowel Sounds normal. MUSCULOSKELETAL: Good range of motion of all major joints. Extremities without clubbing, cyanosis. positive bilateral lower ext edema. NEUROLOGIC EXAM: Alert and oriented x 3. No focal sensory or strength deficits. Speech normal. Follows commands. PSYCHIATRIC: Mood normal. SKIN: Bilateral lower ext edema, chronic venous changes, draining lesion right lower ext. - Constitutional Vitals: Temp Pulse Resp BP Pulse Ox 99.1 F 83 20 120/60 96 03/11/19 13:12 01/31/19 14:18 01/31/19 13:12 01/31/19 13:12 01/31/19 08:16 General appearance: Present: no acute distress Results - Labs CBC & Chem 7: 01/30/19 05:43 01/30/19 05:43 Labs: Laboratory Last Values WBC 9.4 K/mm3 (4.5-11.0) 01/30/19 05:43 RBC 4.02 M/mm3 (3.65-5.03) 01/30/19 05:43 Hgb 11.9 gm/dl (11.8-15.2) 01/30/19 05:43 Hct 36.1 % (35.5-45.6) 01/30/19 05:43 MCV 90 fl (84-94) 01/30/19 05:43 MCH 30 pg (28-32) 01/30/19 05:43 MCHC 33 % (32-34) 01/30/19 05:43 RDW 16.7 % (13.2-15.2) H 01/30/19 05:43 Plt Count 256 K/mm3 (140-440) 01/30/19 05:43 Lymph % (Auto) 20.3 % (13.4-35.0) 01/30/19 05:43 [place] % (Auto) 6.4 % (0.0-7.3) 01/30/19 05:43 Eos % (Auto) 1.6 % (0.0-4.3) 01/30/19 05:43 Baso % (Auto) 0.6 % (0.0-1.8) 01/30/19 05:43 Lymph # 1.9 K/mm3 (1.2-5.4) 01/30/19 05:43 [place] # 0.6 K/mm3 (0.0-0.8) 01/30/19 05:43 Eos # 0.2 K/mm3 (0.0-0.4) 01/30/19 05:43 Baso # 0.1 K/mm3 (0.0-0.1) 01/30/19 05:43 Seg Neutrophils % 71.1 % (40.0-70.0) H 01/30/19 05:43 Seg Neutrophils # 6.7 K/mm3 (1.8-7.7) 01/30/19 05:43 PT 21.7 Sec. (12.2-14.9) H 01/31/19 04:10 INR 1.76 (0.87-1.13) H 01/31/19 04:10 APTT 38.8 Sec. (24.2-36.6) H 01/30/19 01:38 Sodium 144 mmol/L (137-145) 01/30/19 05:43 Potassium 4.0 mmol/L (3.6-5.0) 01/30/19 05:43 Chloride 105.9 mmol/L (98-107) 01/30/19 05:43 Carbon Dioxide 25 mmol/L (22-30) 01/30/19 05:43 Anion Gap 17 mmol/L 01/30/19 05:43 BUN 19 mg/dL (9-20) 01/30/19 05:43 Creatinine 1.0 mg/dL (0.8-1.5) 01/30/19 05:43 Estimated GFR > 60 ml/min 01/30/19 05:43 BUN/Creatinine Ratio 19 % 01/30/19 05:43 Glucose 94 mg/dL (75-100) 01/30/19 05:43 Calcium 9.0 mg/dL (8.4-10.2) 01/30/19 05:43 Total Bilirubin 0.70 mg/dL (0.1-1.2) 01/29/19 19:53 AST 20 units/L (5-40) 01/29/19 19:53 ALT 18 units/L (7-56) 01/29/19 19:53 Alkaline Phosphatase 95 units/L (35-129) 01/29/19 19:53 NT-Pro-B Natriuret Pep 6113 pg/mL (0-900) H 01/29/19 19:53 Total Protein 7.1 g/dL (6.3-8.2) 01/29/19 19:53 Albumin 3.5 g/dL (3.9-5) L 01/29/19 19:53 Albumin/Globulin Ratio 1.0 % 01/29/19 19:53
[2019-01-31] MEDS: PRAVACHOL PO SCH (22:51)
[2019-01-31] MEDS: LANOXIN PO SCH (22:51)
[2019-01-31] MEDS: ZESTRIL PO SCH (22:51)
[2019-02-01 05:20] LABS: INR 1.68 (0.87-1.13)
[2019-02-01] MEDS: SYNTHROID PO SCH (05:21)
[2019-02-01] MEDS: ZOSYN/NS 3.375GM/50ML 3.375 GM/50 ML BAG IV SCH ×2 (05:21→14:41)
[2019-02-01] MEDS: LASIX PO SCH (09:47)
[2019-02-01] MEDS: SODIUM CHLORIDE FLUSH SYRINGE 10 ML IV SCH (09:49)
--- NOTE | 2019-02-01 11:07 | Progress Note ---
Assessment and Plan Patient has significant venous reflux within his bilateral greater saphenous veins and a small saphenous vein. He will need endovenous ablation of these veins to prevent recurrence of his ulcers and to assist in wound healing. Additionally, the patient may benefit from outpatient wound care This procedure is not performed in the hospital and will need to be done as an outpatient. The patient may be discharged home from a vascular standpoint. He will need to follow up in our office in 2 weeks following discharge. [facility] [place] [address] [place] [address] Subjective Date of service: 02/01/19 Principal diagnosis: Venous stasis ulcers Interval history: Patient with a history of right lower extremity venous stasis ulcers. He has adequate arterial inflow to heal his ulcers. The venous ultrasound with reflux demonstrates significant reflux within his right greater saphenous and small s aphenous veins. Distally, the patient has left greater saphenous reflux as well but is clinically significant. He has sequela of venous insufficiency with recurrent slow to heal venous stasis ulcers. Objective - Constitutional Vitals: Vital Signs - 12hr 02/01/19 02/01/19 02:25 07:28 Temperature 98.3 F 98.7 F Pulse Rate 74 82 Respiratory 20 20 Rate Blood Pressure 127/65 124/67 O2 Sat by Pulse 95 98 Oximetry General appearance: Present: no acute distress - EENT Eyes: EOM intact ENT: hearing intact - Neck Neck: supple, normal ROM - Respiratory Respiratory effort: normal - Breasts Breasts: deferred Extremities: abnormal Extremity abnormal: edema, ulceration - Gastrointestinal General gastrointestinal: Present: deferred Rectal Exam: deferred - Genitourinary Male genitourinary: deferred - Musculoskeletal Musculoskeletal: strength equal bilaterally - Psychiatric Psychiatric: appropriate mood/affect, cooperative - Labs CBC & Chem 7: 01/30/19 05:43 01/30/19 05:43 Labs: Abnormal lab results 02/01/19 Range/Units 04:16 PT 20.9 H (12.2-14.9) Sec. INR 1.68 H (0.87-1.13) Medications & Allergies - Medications Allergies/Adverse Reactions: Allergies No Known Allergies Allergy (Verified 10/30/16 12:15) Home Medications: Home Medications Medication Instructions Recorded Confirmed Last Taken Type Furosemide [Lasix] 40 mg PO DAILY 09/30/13 01/30/19 06/25/17 History Levothyroxine [Synthroid] 88 mcg PO QAM 01/26/17 01/30/19 06/25/17 History Lisinopril [Zestril TAB] 10 mg PO QHS 01/26/17 01/30/19 06/24/17 History Pravastatin Sodium [Pravastatin] 20 mg PO QHS 01/26/17 01/30/19 06/24/17 History Digoxin [Lanoxin] 0.125 mg PO QHS 06/25/17 01/30/19 06/24/17 History Warfarin [Coumadin] 10 mg PO DAILY 06/25/17 01/30/19 06/24/17 History Clindamycin [Clindamycin CAP] 300 mg PO QID #40 capsule 06/28/17 01/30/19 Unknown Rx Coumadin 5 mg PO DAILY 01/30/19 01/30/19 Unknown History Active Medications: Generic Name Dose Route Start Last Admin Trade Name Freq PRN Reason Stop Dose Admin Acetaminophen 650 mg 01/30/19 01:07 Tylenol PO Q4H PRN Pain MILD(1-3)/Fever >100.5/SALAZAR Digoxin 0.125 mg 01/30/19 22:00 01/31/19 22:51 Lanoxin PO 0.125 mg QHS FOUZIA Administration Furosemide 40 mg 01/30/19 10:00 02/01/19 09:47 Lasix PO 40 mg DAILY FOUZIA Administration Piperacillin Sod/Tazobactam Sod 3.375 gm in 50 mls @ 100 mls/hr 01/30/19 06:00 02/01/19 05:21 Zosyn/Ns 3.375gm/50ml IV 100 mls/hr Q8HR FOUZIA Administration Protocol Levothyroxine Sodium 88 mcg 01/30/19 06:00 02/01/19 05:21 Synthroid PO 88 mcg QAM@0600 FOUZIA Administration Lisinopril 10 mg 01/30/19 22:00 01/31/19 22:51 Zestril PO 10 mg QHS FOUZIA Administration Ondansetron HCl 4 mg 01/30/19 01:07 Zofran IV Q4H PRN Nausea And Vomiting Pravastatin Sodium 20 mg 01/30/19 22:00 01/31/19 22:51 Pravachol PO 20 mg QHS FOUZIA Administration Sodium Chloride 10 ml 01/30/19 10:00 02/01/19 09:49 Sodium Chloride Flush Syringe 10 Ml IV 10 ml BID FOUZIA Administration Sodium Chloride 10 ml 01/30/19 01:07 Sodium Chloride Flush Syringe 10 Ml IV PRN PRN LINE FLUSH Warfarin Sodium 5 mg 02/05/19 17:00 Coumadin PO SuSa@1700 FOUZIA Warfarin Sodium 10 mg 01/31/19 17:00 01/31/19 17:30 Coumadin PO 10 mg MoTuWeThFr@1700 FOUZIA Administration Warfarin Sodium 2 mg 02/01/19 17:00 Coumadin PO 02/01/19 17:01 ONCE@1700 ONE
--- NOTE | 2019-02-01 12:44 | Discharge Summary ---
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 fib, stroke, hypothyroidism, coronary artery disease,CHF EF 30-35% per echo in january 2017 comes emergency room with complaints of increased redness in the right leg, increased drainage. He denies any fever or chills. Bilateral lower ext cellulites with poor wound healing -Continue abx, Vascular consult noted, plan for arterial duplex with ABIs. No DVT noted. Wound care consult. On review of records this has been ongoing since 2017. Patient and family unable to give me much information of past follow up. PT eval and treat Patient was seen by vascular team and underwent SANTA with showed venous reflux within his bilateral greater saphenous veins and a small saphenous vein. Per vascular team patient will benefit from endovenous ablation of these veins to prevent recurrence of his ulcers and to assist in wound healing. this can only be done out patient. the patient also reports that Bactrim has helped in the past. I advised him about interaction with coumadin and need to have close follow up for INR check. Her verbalized understanding. PVD: Management per Vascular. Pulmonary calcified granuloma- Outpatient pulmonary follow up Atrial fibrillation- Rate controlled, continue Coumadin Secondary Hypercoagulable state- Continue Coumadin CVA per hx: No acute changes noted Hypothyroidism- continue synthroid Severe Pulmonary HTN: STABLE Dilated Left Atrium-Outpatient cardiology eval Stable Chronic Systolic Congestive heart failure-Continue lasix Disposition: DC/TX-06 HOME UNDER HOME [facility] Time spent for discharge: 35 MINS Core Measure Documentation - Palliative Care Palliative Care/ Comfort Measures: Not Applicable - Core Measures Any of the following diagnoses?: none Exam - Physical Exam Narrative exam: VITAL SIGNS: Reviewed. GENERAL: The patient appeared well nourished and normally developed, Vital signs as documented. HEAD: No signs of head trauma. EYES: Pupils are equal. Extraocular motions intact. EARS: Hearing grossly intact. MOUTH: Oropharynx is normal. NECK: No adenopathy, no JVD. CHEST: Chest with clear breath sounds bilaterally. No wheezes, rales, or rhonchi. CARDIAC: Irregular regular. S1 and S2, without murmurs, gallops, or rubs. VASCULAR: + Edema naveen lower ext. Peripheral pulses normal and equal in all extremities. ABDOMEN: Soft, non tender and non distended. No rebound or guarding, and no masses palpated. Bowel Sounds normal. MUSCULOSKELETAL: Good range of motion of all major joints. Extremities without clubbing, cyanosis. positive bilateral lower ext edema. NEUROLOGIC EXAM: Alert and oriented x 3. No focal sensory or strength deficit s. Speech normal. Follows commands. PSYCHIATRIC: Mood normal. SKIN: Bilateral lower ext edema, chronic venous changes, draining lesion right lower ext. - Constitutional Vitals: Temp Pulse Resp BP Pulse Ox 98.7 F 82 20 124/67 98 02/01/19 07:28 02/01/19 10:00 02/01/19 07:28 02/01/19 07:28 02/01/19 07:28 Plan Activity: advance as tolerated, fall precautions Diet: low fat, low salt Special Instructions: record daily BP diary, record blood sugar diary Additional Instructions: Must follow with DR Hanna in a week at. [facility] [place]. [address] [place] [address]. [phone] Follow up with: EDEN NAIR MD [Primary Care Provider] - 3-5 Days HARLAN SAVAGE MD [Staff Physician] - 7 Days KAREL OQUENDO MD [Staff Physician] - 7 Days Prescriptions: Sulfamethoxazole/Trimethoprim [Bactrim DS TAB] 1 each PO BID #14 tablet
[2019-02-01 14:27] VITALS: BP 100/49
[2019-02-01] MEDS ORDERED: COUMADIN PO ONE (17:00)
--- NOTE | 2019-02-02 13:14 | Vascular Lab Report ---
PROCEDURE: VL VENOUS DUPLEX LE BILAT TECHNIQUE: Real-time color duplex sonography was performed of the venous systems of the bilateral lo wer extremities for assessment of venous insufficiency and images are submitted for interpretation HISTORY: venous insufficiency - do venous reflux eval COMPARISONS: None FINDINGS: Right: Flow is demonstrated in the common femoral vein superficial femoral vein junction and througho ut the greater saphenous and small saphenous veins. ? Greater saphenous vein: Origin, 9.4 mm, 0.5 seconds of retrograde flow High-thigh 4.5 mm, 0.24 seconds of retrograde flow Mid 4.6 mm, 1.08 seconds of retrograde flow Above-knee 4.4 mm, 1.18 seconds of retrograde flow At knee 4.4 mm, 0.48 seconds of retrograde flow Below-knee 3.8 mm, 0.42 seconds of retrograde flow Midcalf 3.7 mm, 0.2 seconds of retrograde flow Distal 3.1 mm, 0.86 seconds of retrograde flow Small saphenous vein: [place] 3.0 mm, 0.29 seconds of retrograde flow Proximal calf 2.0 mm, 0.41 seconds of retrograde flow Mid calf 3.7 mm, 0.85 seconds of retrograde flow. Deep veins: Common femoral vein: 0.98 seconds Superficial femoral vein: 0.95 seconds Popliteal vein: 0.99 seconds ? Left: Flow is demonstrated in the common femoral vein superficial femoral vein junction and throughou t the greater saphenous and small saphenous veins. ? Greater saphenous vein: Origin, 8.3 mm, no reflux High-thigh 7.2 mm, 0.72 seconds of retrograde flow Mid 3.1 mm, 0.99 seconds of retrograde flow Above-knee 3.1 mm, no reflux At knee 2.7 mm, 4.08 seconds of retrograde flow Below-knee 2.9 mm, 2.45 seconds of retrograde flow Midcalf 2.6 mm, 2.26 seconds of retrograde flow Distal 1.9 mm, 2.11 seconds of retrograde flow Small saphenous vein: [place] 3.3 mm, 6.5 to seconds of retrograde flow Proximal calf not measured Mid calf not measured Deep veins: Common femoral vein: 0.64 seconds Superficial femoral vein: 0.56 seconds Popliteal vein: 0.60 seconds IMPRESSION: Bilateral greater and small saphenous reflux is documented above This document is electronically signed by Renea Harris MD., January 31 2019 10:52:21 PM ET
--- NOTE | 2019-02-02 13:14 | Vascular Lab Report ---
PROCEDURE: VL SANTA EVALUATION TECHNIQUE: Segmental pressures were performed of the bilateral lower extremities HISTORY: decreased pedal pulses, non-healing wound COMPARISONS: None FINDINGS: Right: SANTA could not be determined. Brachial pressure 148 High-thigh pressure not measured Low thigh pressure not measured Calf pressure not measured Ankle (PT) pressure >255 Ankle (DP) pressure >255 Digit 74 ? Left: SANTA could not be determined. Brachial pressure 127 High-thigh pressure not measured Low thigh pressure not measured Calf pressure not measured Ankle (PT) pressure >255 Ankle (DP) pressure >255 Digit 94 IMPRESSION: Bilateral ABIs could not be determined This document is electronically signed by Renea Harris MD., January 31 2019 10:15:22 PM ET
--- NOTE | 2019-02-02 13:14 | Vascular Lab Report ---
PROCEDURE: VL ARTERIAL DUPLEX LE BILAT TECHNIQUE: Real-time color duplex sonography was performed of the bilateral lower extremity arterial systems and images are submitted for interpretation HISTORY: decreased pedal pulses, non-healing wound COMPARISONS: None FINDINGS: Right Velocities: There is monophasic flow throughout Common femoral artery: Peak systolic 154 cm/s Proximal superficial femoral artery: Peak systolic 128.9 cm/s Mid superficial femoral artery: Peak systolic 177.7 cm/s Distal superficial femoral artery: Peak systolic 131.4 cm/s Proximal deep femoral artery: Peak systolic 72.9 cm/s Distal popliteal artery: Peak systolic 94.2 cm/s Distal posterior tibialis artery: Peak systolic 75.8 cm/s Proximal anterior tibialis artery: Peak systolic 24.3 cm/s Dorsalis pedis artery: Peak systolic 24.1 cm/s Left Velocities: Common femoral artery: Peak systolic 112.8 cm/s, triphasic flow Proximal superficial femoral artery: Peak systolic 103.4 cm/s, triphasic flow Mid superficial femoral artery: Peak systolic 165.7 cm/s, triphasic flow Distal superficial femoral artery: Peak systolic 84.7 cm/s, monophasic flow Proximal deep femoral artery: Peak systolic 106.3 cm/s biphasic flow Distal popliteal artery: Peak systolic 58.9 cm/s, monophasic flow Distal posterior tibialis artery: Peak systolic 88.9 cm/s, monophasic flow Proximal anterior tibialis artery: Peak systolic 46.3 cm/s, monophasic flow Dorsalis pedis artery: Peak systolic 21.9 cm/s, monophasic flow IMPRESSION: 1. Diffuse atherosclerotic disease throughout the right lower extremity without occlusion 2. Atherosclerotic disease of the left lower extremity with monophasic flow from the distal superfici al femoral artery to the dorsalis pedis. This document is electronically signed by Renea Harris MD., January 31 2019 10:25:29 PM ET
[2019-02-05] MEDS ORDERED: COUMADIN PO SCH (17:00)
== END 2019-02-01 15:00 | disposition home or self-care (01) | DRG 603 ==
LOC: ED 18:58 → 2B-ACE 23:59
PROVIDERS: ADMIT Internal Medicine; ATTEND Internal Medicine
DX: L03.115 Cellulitis of right lower limb (principal); I50.22 Chronic systolic (congestive) heart failure; D68.69 Other thrombophilia; I48.91 Unspecified atrial fibrillation; E03.9 Hypothyroidism, unspecified; L03.116 Cellulitis of left lower limb; L02.415 Cutaneous abscess of right lower limb; J84.10 Pulmonary fibrosis, unspecified; I27.20 Pulmonary hypertension, unspecified; I87.2 Venous insufficiency (chronic) (peripheral); I11.0 Hypertensive heart disease with heart failure; I25.10 Atherosclerotic heart disease of native coronary artery without angina pectoris; Z82.49 Family history of ischemic heart disease and other diseases of the circulatory system; Z79.01 Long term (current) use of anticoagulants; Z79.899 Other long term (current) drug therapy; I25.2 Old myocardial infarction
CPT/HCPCS: 36415; 71046; 80048; 80053; 83880; 85025; 85027; 85610; 85730; 93922; 93925; 93970; 94760; G0378; A9270-GY; J1650; J2543; J3370

== ENCOUNTER 2019-04-22 21:32 | Inpatient (IN) | payer MEDICARE ==
[2019-04-22] MEDS ORDERED: NACL 0.9% 1000 ML IV ONE (22:36)
[2019-04-22] MEDS ORDERED: VANCOMYCIN/NS 1 GM/250 ML 1 GM/250 ML BAG IV ONE (22:50)
[2019-04-22] MEDS ORDERED: TYLENOL PO ONE (22:52)
[2019-04-22 22:56] LABS: Hemoglobin 12.3 gm/dl (11.8-15.2); Mean Corpuscular HGB Conc 32 % (32-34); Mean Corpuscular Volume 93 fl (84-94); Platelet Count 254 K/mm3 (140-440); Red Blood Count 4.08 M/mm3 (3.65-5.03); Red Cell Distribution Width 19.4 % (13.2-15.2)
[2019-04-22 23:16] LABS: Albumin 3.4 g/dL (3.9-5); Calcium 9.4 mg/dL (8.4-10.2)
--- NOTE | 2019-04-22 23:19 | XRay Report ---
PROCEDURE: XR CHEST 1V AP TECHNIQUE: Chest radiograph single view. HISTORY: fever COMPARISONS: 01/29/2019 . FINDINGS: Heart: Heart is enlarged. Mediastinum/Vessels: There is calcified plaque in the thoracic aorta. There are nonenlarged calcified mediastinal and hilar lymph nodes.. Lungs/Pleural space: Lungs are expanded. There are mild fibrotic changes at the lung bases. There is an 8 mm calcified granuloma in the right lower lung. There are no infiltrates, effusions or pneumoth oraces.. Bony thorax: No acute osseous abnormality. Life support devices: None. IMPRESSION: Heart is enlarged. There is calcified plaque in the thoracic aorta. There are nonenlarged calcified mediastinal and hilar lymph nodes.. Lungs are expanded. There are mild fibrotic changes at the lung bases. There is an 8 mm calcified gra nuloma in the right lower lung. There are no infiltrates, effusions or pneumothoraces. This document is electronically signed by Juan Celis MD., April 23 2019 12:17:13 AM ET
[2019-04-22 23:31] LABS: INR 2.88 (0.87-1.13)
[2019-04-22 23:32] LABS: Partial Thromboplastin Time 40.5 Sec. (24.2-36.6)
[2019-04-22] MEDS ORDERED: ZOSYN/NS 4.5GM/100ML 4.5 GM/100 ML VIAL IV ONE (23:41)
[2019-04-22] MEDS ORDERED: CARDIZEM/D5W 100MG/100ML 100 MG/100 ML BAG IV SCH (23:45)
[2019-04-22 23:49] LABS: Bilirubin,Urine NEG (Negative); Blood,Urine SM (Negative); Color,Urine Yellow (Yellow); Mucus,Urine FEW /HPF; Protein,Urine <15 mg/dL mg/dL (Negative); WBC,Urine < 1.0 /HPF (0.0-6.0)
--- NOTE | 2019-04-23 00:18 | Emergency Department Report ---
ED Extremity Problem HPI - General Chief complaint: Extremity Problem,Nontraumatic Stated complaint: LEG INFECTIONS Time Seen by Provider: 04/22/19 23:41 Source: family, old records reviewed Mode of arrival: Stretcher Limitations: No Limitations - History of Present Illness Initial comments: 83-year-old male with a past medical history hypertension, atrial fibrillation currently on Coumadin, CVA, hypothyroidism, CAD, CHF with EF 30-35% per echo January 2017 presents to Hospital complaining of bilateral leg infection. Patient has chronic leg ulcers and has been admitted to the hospital in January of this year for bilateral lower extremity cellulitis. As per discharge summary patient had ABIs that showed venous reflux within his bilateral greater saphenous veins and a small saphenous vein. Patient was evaluated by vascular and was thought that he would benefit from and old venous ablation of these veins to prevent reoccurrence of his ulcer and assist with wound healing which could be done as outpatient. Patient was discharged on Bactrim at that time. Apparently currently have some Bactrim and has been taking half doses of the pill to make it last longer. He also doesn't have anyone to take care of his wounds. He presents with bilateral leg edema with mild odorous ulcer drainage that is obviously infected and possible sepsis. Severity scale (0 -10): 6 - Related Data Home Medications Medication Instructions Recorded Confirmed Last Taken Furosemide [Lasix] 40 mg PO DAILY 09/30/13 01/30/19 06/25/17 Levothyroxine [Synthroid] 88 mcg PO QAM 01/26/17 01/30/19 06/25/17 Lisinopril [Zestril TAB] 10 mg PO QHS 01/26/17 01/30/19 06/24/17 Pravastatin Sodium [Pravastatin] 20 mg PO QHS 01/26/17 01/30/19 06/24/17 Digoxin [Lanoxin] 0.125 mg PO QHS 06/25/17 01/30/19 06/24/17 Warfarin [Coumadin] 10 mg PO DAILY 06/25/17 01/30/19 06/24/17 Coumadin 5 mg PO DAILY 01/30/19 01/30/19 Unknown Previous Rx's Medication Instructions Recorded Last Taken Type Sulfamethoxazole/Trimethoprim 1 each PO BID #14 tablet 02/01/19 Unknown Rx [Bactrim DS TAB] Allergies Allergy/AdvReac Type Severity Reaction Status Date / Time No Known Allergies Allergy Verified 10/30/16 12:15 ED Review of Systems ROS: Stated complaint: LEG INFECTIONS Other details as noted in HPI Comment: All other systems reviewed and negative ED Past Medical Hx - Past Medical History Hx Hypertension: Yes Hx Heart Attack/AMI: Yes Hx Congestive Heart Failure: Yes Hx Diabetes: No Hx Deep Vein Thrombosis: No Hx Pulmonary Embolism: No Hx Liver Disease: No Hx Renal Disease: No Hx Sickle Cell Disease: No Hx Arthritis: No Hx Seizures: No Hx Kidney Stones: No Hx Asthma: No Hx COPD: No Hx Tuberculosis: No Hx Dementia: No Hx HIV: No Additional medical history: chronic cellulitis BLE. hypothyroidism. CAD, afib, - Surgical History Hx Coronary Stent: No Hx Pacemaker: No Hx Internal Defibrillator: No Additional Surgical History: "jaw surgery" - Social History Smoking Status: Former Smoker - Medications Home Medications: Home Medications Medication Instructions Recorded Confirmed Last Taken Type Furosemide [Lasix] 40 mg PO DAILY 09/30/13 01/30/19 06/25/17 History Levothyroxine [Synthroid] 88 mcg PO QAM 01/26/17 01/30/19 06/25/17 History Lisinopril [Zestril TAB] 10 mg PO QHS 01/26/17 01/30/19 06/24/17 History Pravastatin Sodium [Pravastatin] 20 mg PO QHS 01/26/17 01/30/19 06/24/17 History Digoxin [Lanoxin] 0.125 mg PO QHS 06/25/17 01/30/19 06/24/17 History Warfarin [Coumadin] 10 mg PO DAILY 06/25/17 01/30/19 06/24/17 History Coumadin 5 mg PO DAILY 01/30/19 01/30/19 Unknown History Sulfamethoxazole/Trimethoprim 1 each PO BID #14 tablet 02/01/19 Unknown Rx [Bactrim DS TAB] ED Physical Exam - General Limitations: No Limitations - Other Other exam information: General: No limitations, patient is alert in no acute distress Head exam: Atraumatic, normocephalic Eyes exam: Normal appearance, pupils equal reactive to light, extraocular movements intact ENT: Moist mucous membrane, normal oropharynx Neck exam: Normal inspection, full range of motion, no meningismus nontender Respiratory exam: Clear to auscultation bilateral, no wheezes, rales, crackles Cardiovascular: Normal rate and rhythm, normal heart sounds Abdomen: Soft, nondistended, and nontender, with normal bowel sounds, no rebound, or guarding Extremity: Full range of motion normal inspection no deformity Back: Normal Inspection, full range of motion, no tenderness Neurologic: Alert, oriented x3, cranial nerves intact, no motor or sensory deficit Psychiatric: normal affect, normal mood Skin: Warm, dry, intact ED Course Vital Signs 04/22/19 04/22/19 04/22/19 22:38 22:40 22:47 Temperature 101.2 F H Pulse Rate 147 H 132 H 140 H Respiratory 18 32 H 24 Rate Blood Pressure Blood Pressure 148/73 [Left] O2 Sat by Pulse 95 93 97 Oximetry 04/22/19 04/22/19 04/22/19 23:00 23:15 23:30 Temperature Pulse Rate 133 H 135 H 140 H Respiratory 26 H 19 25 H Rate Blood Pressure 140/82 140/82 140/86 Blood Pressure [Left] O2 Sat by Pulse 96 95 93 Oximetry 04/22/19 04/23/19 04/23/19 23:45 00:01 00:11 Temperature Pulse Rate 150 H 151 H 139 H Respiratory 21 28 H 26 H Rate Blood Pressure 145/81 145/81 141/55 Blood Pressure [Left] O2 Sat by Pulse 98 97 97 Oximetry 04/23/19 04/23/19 04/23/19 00:15 00:31 00:45 Temperature Pulse Rate 132 H 124 H 120 H Respiratory 26 H 26 H 24 Rate Blood Pressure 141/55 132/49 132/49 Blood Pressure [Left] O2 Sat by Pulse 98 95 Oximetry 04/23/19 04/23/19 01:00 01:05 Temperature 98.7 F Pulse Rate 116 H Respiratory 16 Rate Blood Pressure 106/46 Blood Pressure [Left] O2 Sat by Pulse 94 Oximetry ED Medical Decision Making - Lab Data Result diagrams: 04/22/19 22:44 04/22/19 22:44 Lab Results 04/22/19 04/22/19 04/22/19 Range/Units 22:44 22:44 22:44 WBC 13.9 H (4.5-11.0) K/mm3 RBC 4.08 (3.65-5.03) M/mm3 Hgb 12.3 (11.8-15.2) gm/dl Hct 38.0 (35.5-45.6) % MCV 93 (84-94) fl MCH 30 (28-32) pg MCHC 32 (32-34) % RDW 19.4 H (13.2-15.2) % Plt Count 254 (140-440) K/mm3 PT (12.2-14.9) Sec. INR (0.87-1.13) APTT (24.2-36.6) Sec. VBG pH (7.320-7.420) Sodium 141 (137-145) mmol/L Potassium 5.0 (3.6-5.0) mmol/L Chloride 106.6 (98-107) mmol/L Carbon Dioxide 21 L (22-30) mmol/L Anion Gap 18 mmol/L BUN 23 H (9-20) mg/dL Creatinine 1.2 (0.8-1.5) mg/dL Estimated GFR 58 ml/min BUN/Creatinine Ratio 19 % Glucose 101 H (75-100) mg/dL Lactic Acid 2.10 H* (0.7-2.0) mmol/L Calcium 9.4 (8.4-10.2) mg/dL Total Bilirubin 1.60 H (0.1-1.2) mg/dL AST 27 (5-40) units/L ALT 18 (7-56) units/L Alkaline Phosphatase 121 (35-129) units/L Total Protein 7.8 (6.3-8.2) g/dL Albumin 3.4 L (3.9-5) g/dL Albumin/Globulin Ratio 0.8 % Urine Color (Yellow) Urine Turbidity (Clear) Urine pH (5.0-7.0) Ur Specific [place] (1.003-1.030) Urine Protein (Negative) mg/dL Urine Glucose (UA) (Negative) mg/dL Urine Ketones (Negative) mg/dL Urine Blood (Negative) Urine Nitrite (Negative) Urine Bilirubin (Negative) Urine Urobilinogen (<2.0) mg/dL Ur Leukocyte Esterase (Negative) Urine WBC (Auto) (0.0-6.0) /HPF Urine RBC (Auto) (0.0-6.0) /HPF U Epithel Cells (Auto) (0-13.0) /HPF Urine Mucus /HPF 04/22/19 04/22/19 04/22/19 Range/Units 23:00 23:01 23:01 WBC (4.5-11.0) K/mm3 RBC (3.65-5.03) M/mm3 Hgb (11.8-15.2) gm/dl Hct (35.5-45.6) % MCV (84-94) fl MCH (28-32) pg MCHC (32-34) % RDW (13.2-15.2) % Plt Count (140-440) K/mm3 PT 32.2 H (12.2-14.9) Sec. INR 2.88 H (0.87-1.13) APTT 40.5 H (24.2-36.6) Sec. VBG pH 7.319 L (7.320-7.420) Sodium (137-145) mmol/L Potassium (3.6-5.0) mmol/L Chloride (98-107) mmol/L Carbon Dioxide (22-30) mmol/L Anion Gap mmol/L BUN (9-20) mg/dL Creatinine (0.8-1.5) mg/dL Estimated GFR ml/min BUN/Creatinine Ratio % Glucose (75-100) mg/dL Lactic Acid (0.7-2.0) mmol/L Calcium (8.4-10.2) mg/dL Total Bilirubin (0.1-1.2) mg/dL AST (5-40) units/L ALT (7-56) units/L Alkaline Phosphatase (35-129) units/L Total Protein (6.3-8.2) g/dL Albumin (3.9-5) g/dL Albumin/Globulin Ratio % Urine Color Yellow (Yellow) Urine Turbidity Clear (Clear) Urine pH 5.0 (5.0-7.0) Ur Specific [place] 1.015 (1.003-1.030) Urine Protein <15 mg/dl (Negative) mg/dL Urine Glucose (UA) Neg (Negative) mg/dL Urine Ketones Neg (Negative) mg/dL Urine Blood Sm (Negative) Urine Nitrite Neg (Negative) Urine Bilirubin Neg (Negative) Urine Urobilinogen 4.0 (<2.0) mg/dL Ur Leukocyte Esterase Neg (Negative) Urine WBC (Auto) < 1.0 (0.0-6.0) /HPF Urine RBC (Auto) 5.0 (0.0-6.0) /HPF U Epithel Cells (Auto) 1.0 (0-13.0) /HPF Urine Mucus Few /HPF 04/22/19 Range/Units 23:45 WBC (4.5-11.0) K/mm3 RBC (3.65-5.03) M/mm3 Hgb (11.8-15.2) gm/dl Hct (35.5-45.6) % MCV (84-94) fl MCH (28-32) pg MCHC (32-34) % RDW (13.2-15.2) % Plt Count (140-440) K/mm3 PT (12.2-14.9) Sec. INR (0.87-1.13) APTT (24.2-36.6) Sec. VBG pH (7.320-7.420) Sodium (137-145) mmol/L Potassium (3.6-5.0) mmol/L Chloride (98-107) mmol/L Carbon Dioxide (22-30) mmol/L Anion Gap mmol/L BUN (9-20) mg/dL Creatinine (0.8-1.5) mg/dL Estimated GFR ml/min BUN/Creatinine Ratio % Glucose (75-100) mg/dL Lactic Acid 2.50 H* (0.7-2.0) mmol/L Calcium (8.4-10.2) mg/dL Total Bilirubin (0.1-1.2) mg/dL AST (5-40) units/L ALT (7-56) units/L Alkaline Phosphatase (35-129) units/L Total Protein (6.3-8.2) g/dL Albumin (3.9-5) g/dL Albumin/Globulin Ratio % Urine Color (Yellow) Urine Turbidity (Clear) Urine pH (5.0-7.0) Ur Specific [place] (1.003-1.030) Urine Protein (Negative) mg/dL Urine Glucose (UA) (Negative) mg/dL Urine Ketones (Negative) mg/dL Urine Blood (Negative) Urine Nitrite (Negative) Urine Bilirubin (Negative) Urine Urobilinogen (<2.0) mg/dL Ur Leukocyte Esterase (Negative) Urine WBC (Auto) (0.0-6.0) /HPF Urine RBC (Auto) (0.0-6.0) /HPF U Epithel Cells (Auto) (0-13.0) /HPF Urine Mucus /HPF - EKG Data -: EKG Interpreted by Me (afib) EKG shows normal: axis (qrs 118), QRS complexes (qrsd 104), ST-T waves (no stemi) Rate: tachycardia (135) - Radiology Data Radiology results: report reviewed cxr: Heart is enlarged, calcified plaque in the thoracic aorta, nonenlarged calcfied mediastinal and hilar lymph nodes. Lungs are expanding. Mild hepatic changes at the lung bases. Right lower lobe calcified granuloma 8 mm.. No infiltrate effusions or pneumothoraces - Medical Decision Making admission for infected venous stasis ulcers with drainage cellulitis + sepsis without signs of septic shock. cultures pending pt tx with NS, tylenol, Vanc, Zosyn cardizem drip to titrate in ed Pt will also benefit from case management consult for safe d/c planning since he is unable to adequately care for himself and wounds at home contact precautions due to hx of MRSA - Differential Diagnosis cellulitis, infected Ulcer, sepsis Critical Care Time: Yes Critical care time in (mins) excluding proc time.: 35 Critical care attestation.: If time is entered above; I have spent that time in minutes in the direct care of this critically ill patient, excluding procedure time. ED Disposition Clinical Impression: Sepsis, Bilateral lower leg cellulitis, Infected stasis ulcer, Hx MRSA infection, Atrial fibrillation with RVR, Anticoagulated on Coumadin Disposition: OP ADMIT IP TO THIS HOSP Is pt being admited?: Yes Condition: Stable Referrals: BC MUNIZ MD [Primary Care Provider] - 3-5 Days Time of Disposition: 00:22 (Dr Cummings/hosp)
[2019-04-23] MEDS ORDERED: TYLENOL PO PRN (01:15)
[2019-04-23] MEDS ORDERED: SODIUM CHLORIDE FLUSH SYRINGE 10 ML IV PRN (01:15)
[2019-04-23] MEDS ORDERED: ZOFRAN IV PRN (01:15)
[2019-04-23] MEDS ORDERED: MORPHINE IV PRN (01:15)
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
[2019-04-23] MEDS ORDERED: VANCOMYCIN PHARMACY TO DOSE IV SCH (03:00)
[2019-04-23] MEDS ORDERED: CARDIZEM/D5W 100MG/100ML 100 MG/100 ML BAG IV SCH ×3 (03:12→04:00)
[2019-04-23] MEDS ORDERED: ZOSYN/NS 3.375GM/50ML 3.375 GM/50 ML BAG IV SCH (06:00)
[2019-04-23] MEDS ORDERED: VANCOMYCIN 1,250 MG in NACL 0.9% 250ML 250 ML IV SCH (08:00)
[2019-04-23] MEDS: SODIUM CHLORIDE FLUSH SYRINGE 10 ML IV SCH ×2 (09:47→23:00)
[2019-04-23] MEDS: COLACE PO SCH ×2 (09:47→21:27)
[2019-04-23] MEDS ORDERED: HEPARIN SUB-Q SCH (10:00)
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
[2019-04-23] MEDS: ZOSYN/NS 4.5GM/100ML 4.5 GM/100 ML VIAL IV SCH ×2 (14:00→21:25)
[2019-04-23] MEDS ORDERED: COUMADIN PO SCH (17:00)
[2019-04-23] MEDS ORDERED: VANCOMYCIN 1,500 MG in NACL 0.9% 500 ML 500 ML IV SCH (18:00)
[2019-04-23] MEDS: CARDIZEM PO SCH ×2 (18:01→21:29)
[2019-04-23] MEDS: LANOXIN PO SCH (21:25)
[2019-04-23] MEDS: PRAVACHOL PO SCH (21:26)
[2019-04-23] MEDS: PERCOCET 5/325 PO PRN (21:26)
[2019-04-23] MEDS ORDERED: NON-FORMULARY (Pravastatin Sodium [Pravastatin] 20 MG) PO SCH (22:00)
[2019-04-23] MEDS ORDERED: ZESTRIL PO SCH (22:00)
[2019-04-24] MEDS ORDERED: NACL 0.9% 250ML 250 ML IV ONE (00:17)
[2019-04-24] MEDS: NACL 0.9% 1000 ML 1,000 ML IV SCH ×2 (01:12→16:41)
[2019-04-24 05:39] LABS: Basophils # (Auto) 0.1 K/mm3 (0.0-0.1); Eosinophils % (Auto) 0.1 % (0.0-4.3); Hematocrit 33.5 % (35.5-45.6); Hemoglobin 10.7 gm/dl (11.8-15.2); Lymphocytes # (Auto) 1.3 K/mm3 (1.2-5.4); Lymphocytes % (Auto) 12.8 % (13.4-35.0); Mean Corpuscular HGB Conc 32 % (32-34); Mean Corpuscular Volume 94 fl (84-94); Monocytes # (Auto) 0.9 K/mm3 (0.0-0.8); Monocytes % (Auto) 9.1 % (0.0-7.3); Platelet Count 242 K/mm3 (140-440); Red Blood Count 3.58 M/mm3 (3.65-5.03); Red Cell Distribution Width 19.7 % (13.2-15.2)
[2019-04-24] MEDS: ZOSYN/NS 4.5GM/100ML 4.5 GM/100 ML VIAL IV SCH (05:58)
[2019-04-24] MEDS ORDERED: CARDIZEM PO SCH (06:00)
[2019-04-24 06:12] LABS: Albumin 2.8 g/dL (3.9-5); Calcium 8.5 mg/dL (8.4-10.2)
[2019-04-24 06:14] LABS: INR 3.19 (0.87-1.13)
[2019-04-24] MEDS ORDERED: NACL 0.9% 1000 ML 1,000 ML IV ONE (07:41)
[2019-04-24] MEDS ORDERED: KIONEX PO ONE (07:41)
--- NOTE | 2019-04-24 08:20 | Consultation ---
History of Present Illness - Reason for Consult Consult date: 04/24/19 Cellulitis, fever Requesting physician: MILAGROS GUNTER - History of Present Illness The patient is an 83-year-old male with coronary artery disease, congestive heart failure, atrial fibrillation, hypothyroidism, chronic bilateral lower extremity ulcers with venous insufficiency was admitted to the hospital yesterday with complaints of bilateral leg swelling with increased drainage. This was associated with fevers and chills. Of note, the patient was recently hospitalized in 01/2019 with similar complaints and noted to have significant venous reflux. He was recommended venous ablation as an outpatient. Upon admission, he had a fever of 101.2F and evidence of leukocytosis. He was empirically started on Zosyn and vancomycin. Infectious diseases has been consulted for additional recommendations. Currently, he is in IMCU. He has been afebrile since admission. Reports pain in bilateral lower extremities and increased drainage. Otherwise, denies any nausea or vomiting. Denies abdominal pain. Denies any cough or shortness of breath. Review of Systems: General: no fevers,chills or rigors at present HEENT: no new visual disturbance Respiratory: No cough, sputum, hemoptysis or shortness of breath Cardiovascular: No chest pain, syncope Gastrointestinal: No nausea, vomiting or diarrhea Genitourinary: No dysuria or hematuria Musculoskeletal: No new or worsening neck pain or back pain Neurologic: No headaches, seizures Hematologic: No easy bruising or bleeding Endocrine: No night sweats or acute weight loss Skin: negative for rash, jaundice. b/L LE with extensive ulcers Psychiatric: No suicidal or homicidal ideation Past History Past Medical History: atrial fib, CAD, heart failure, hypertension, hypothyroidism, other (chronic bilateral lower extremity cellulitis with ulcers) Past Surgical History: Other (jaw surgery) Social history: no significant social history (he denies current tobacco, alcohol or illicit drug use) Medications and Allergies Allergies Allergy/AdvReac Type Severity Reaction Status Date / Time No Known Allergies Allergy Verified 10/30/16 12:15 Home Medications Medication Instructions Recorded Confirmed Last Taken Type Furosemide [Lasix] 40 mg PO DAILY 09/30/13 01/30/19 06/25/17 History Levothyroxine [Synthroid] 88 mcg PO QAM 01/26/17 01/30/19 06/25/17 History Lisinopril [Zestril TAB] 10 mg PO QHS 01/26/17 01/30/19 06/24/17 History Pravastatin Sodium [Pravastatin] 20 mg PO QHS 01/26/17 01/30/19 06/24/17 History Digoxin [Lanoxin] 0.125 mg PO QHS 06/25/17 01/30/19 06/24/17 History Warfarin [Coumadin] 10 mg PO DAILY 06/25/17 01/30/19 06/24/17 History Coumadin 5 mg PO DAILY 01/30/19 01/30/19 Unknown History Sulfamethoxazole/Trimethoprim 1 each PO BID #14 tablet 02/01/19 Unknown Rx [Bactrim DS TAB] Active Meds: Active Medications Acetaminophen (Tylenol) 650 mg PO Q4H PRN PRN Reason: Pain MILD(1-3)/Fever >100.5/SALAZAR Digoxin (Lanoxin) 0.125 mg PO QHS [facility] Last Admin: 04/23/19 21:25 Dose: 0.125 mg Documented by: Docusate Sodium (Colace) 100 mg PO BID [facility] Last Admin: 04/23/19 21:27 Dose: 100 mg Documented by: Sodium Chloride (Nacl 0.9% 1000 Ml) 1,000 mls @ 75 mls/hr IV DIRECT [facility] Last Admin: 04/24/19 01:12 Dose: 75 mls/hr Documented by: Piperacillin Sod/Tazobactam Sod (Zosyn/Ns 4.5gm/100ml) 4.5 gm in 100 mls @ 200 mls/hr IV Q8HR [facility] Last Admin: 04/24/19 05:58 Dose: 200 mls/hr Documented by: Sodium Chloride (Nacl 0.9% 1000 Ml) 1,000 mls @ 999 mls/hr IV BOLUS ONE Stop: 04/24/19 08:41 Levothyroxine Sodium (Synthroid) 88 mcg PO QAM [facility] Morphine Sulfate (Morphine) 1 mg IV Q4H PRN PRN Reason: Pain , Severe (7-10) Ondansetron HCl (Zofran) 4 mg IV Q8H PRN PRN Reason: Nausea And Vomiting Oxycodone/Acetaminophen (Percocet 5/325) 1 tab PO Q6H PRN PRN Reason: Pain, Moderate (4-6) Last Admin: 04/23/19 21:26 Dose: 1 tab Documented by: Pravastatin Sodium (Pravachol) 20 mg PO QHS [facility] Last Admin: 04/23/19 21:26 Dose: 20 mg Documented by: Sodium Chloride (Sodium Chloride Flush Syringe 10 Ml) 10 ml IV BID [facility] Last Admin: 04/23/19 23:00 Dose: 10 ml Documented by: Sodium Chloride (Sodium Chloride Flush Syringe 10 Ml) 10 ml IV PRN PRN PRN Reason: LINE FLUSH Warfarin Sodium (Coumadin) 5 mg PO DAILY@1700 [facility]; Protocol Last Admin: 04/23/19 18:01 Dose: 5 mg Documented by: Physical Examination - Physical Exam Narrative exam: Physical Exam: Constitutional: Alert, cooperative. No acute distress Head, Ears, Nose: Normocephalic, atraumatic. External ears, nose normal Eyes: Conjunctivae/corneas clear. No icterus. No ptosis. Neck: Supple, no meningeal signs Oral: Edentulous, no thrush Cardiovascular: S1, S2 normal. Respiratory: Good air entry, clear to auscultation bilaterally GI: Soft, non-tender; bowel sounds normal. No peritoneal signs Musculoskeletal: b/l LE with stasis dermatitis and chronic lymphedema, extensive superficial ulcers, worse on R compared to L. Skin: No rash or abscess. b/l LE with dry skin. Hem/Lymphatic: No palpable cervical or supraclavicular nodes. No lymphangitis Psych: Mood ok. Affect normal Neurological: Awake, alert, oriented. No gross abnormality - Constitutional Vitals: Vital Signs Temp Pulse Resp BP Pulse Ox 98.2 F 62 14 94/48 100 04/24/19 04:00 04/24/19 06:11 04/24/19 06:11 04/24/19 06:11 04/24/19 06:11 Temperature -Last 24 Hours Temperature 98.2 F Temperature 98 F Temperature 97.8 F Temperature 97.2 F Temperature 98.7 F Results - Labs CBC & Chem 7: 04/24/19 05:16 04/24/19 05:16 Labs: Abnormal lab results 04/24/19 04/24/19 04/24/19 Range/Units 05:16 05:16 05:16 RBC 3.58 L (3.65-5.03) M/mm3 Hgb 10.7 L (11.8-15.2) gm/dl Hct 33.5 L (35.5-45.6) % RDW 19.7 H (13.2-15.2) % Lymph % (Auto) 12.8 L (13.4-35.0) % [place] % (Auto) 9.1 H (0.0-7.3) % [place] # 0.9 H (0.0-0.8) K/mm3 Seg Neutrophils % 77.0 H (40.0-70.0) % PT 34.9 H (12.2-14.9) Sec. INR 3.19 H (0.87-1.13) Potassium 5.1 H (3.6-5.0) mmol/L Chloride 109.4 H (98-107) mmol/L Carbon Dioxide 20 L (22-30) mmol/L BUN 29 H (9-20) mg/dL Creatinine 1.6 H (0.8-1.5) mg/dL Total Bilirubin 1.30 H (0.1-1.2) mg/dL Albumin 2.8 L (3.9-5) g/dL - Imaging and Cardiology Chest x-ray: report reviewed, image reviewed (no pneumonia seen) Assessment and Plan Cultures: 04/22/2019 blood culture: No growth thus far A/P: 83-year-old male with coronary artery disease, congestive heart failure, atrial fibrillation, hypothyroidism, chronic bilateral lower extremity ulcers with venous insufficiency admitted with: 1) Sepsis secondary to bilateral lower extremity cellulitis with superficial ulcers in the setting of stasis dermatitis chronic lymphedema and venous insufficiency: anticipate short course of abx. Follow up blood cultures. Get wound cultures, continue wound care. 2) Chronic venous insufficiency: Vascular surgery consulted 3) Acute kidney injury: Renally dose antibiotics. Monitor creatinine closely while on vancomycin. Will avoid Zosyn and vancomycin combination. 4) A.fib on anticoagulation. Recs: Discontinue Zosyn Started IV cefepime renally adjusted Continue IV vancomycin, target trough between 10-15 g per mL Wound culture ordered Awaiting vascular IR eval Continue wound care d/W Dr. Eber Alvarez MD [facility], [place] C: [phone] O: [phone] F: [phone]
--- NOTE | 2019-04-24 09:19 | Consultation ---
History of Present Illness - Reason for Consult Consult date: 04/24/19 non healing wounds - History of Present Illness Patient with a history of venous insufficiency with bilateral lower extremity edema, hemosiderin staining, lipodermatosclerosis, and nonhealing ulcers on the lower legs. He presents with recurrent infection. A previous arterial studies demonstrate adequate inflow to heal the wounds however, the patient has significant reflux within his greater saphenous veins and right small saphenous vein. Past History Past Medical History: atrial fib, CAD, heart failure, hypertension, hypothyroidism, other (chronic bilateral lower extremity cellulitis with ulcers) Past Surgical History: Other (jaw surgery) Social history: no significant social history (he denies current tobacco, alcohol or illicit drug use) Family history: other (reviewed and noncontributory to cellulitis or atrial fib) Medications and Allergies Allergies Allergy/AdvReac Type Severity Reaction Status Date / Time No Known Allergies Allergy Verified 10/30/16 12:15 Home Medications Medication Instructions Recorded Confirmed Last Taken Type Furosemide [Lasix] 40 mg PO DAILY 09/30/13 01/30/19 06/25/17 History Levothyroxine [Synthroid] 88 mcg PO QAM 01/26/17 01/30/19 06/25/17 History Lisinopril [Zestril TAB] 10 mg PO QHS 01/26/17 01/30/19 06/24/17 History Pravastatin Sodium [Pravastatin] 20 mg PO QHS 01/26/17 01/30/19 06/24/17 History Digoxin [Lanoxin] 0.125 mg PO QHS 06/25/17 01/30/19 06/24/17 History Warfarin [Coumadin] 10 mg PO DAILY 06/25/17 01/30/19 06/24/17 History Coumadin 5 mg PO DAILY 01/30/19 01/30/19 Unknown History Sulfamethoxazole/Trimethoprim 1 each PO BID #14 tablet 02/01/19 Unknown Rx [Bactrim DS TAB] Active Meds: Active Medications Acetaminophen (Tylenol) 650 mg PO Q4H PRN PRN Reason: Pain MILD(1-3)/Fever >100.5/SALZAAR Digoxin (Lanoxin) 0.125 mg PO QHS [facility] Last Admin: 04/23/19 21:25 Dose: 0.125 mg Documented by: Docusate Sodium (Colace) 100 mg PO BID [facility] Last Admin: 04/23/19 21:27 Dose: 100 mg Documented by: Sodium Chloride (Nacl 0.9% 1000 Ml) 1,000 mls @ 75 mls/hr IV DIRECT [facility] Last Admin: 04/24/19 01:12 Dose: 75 mls/hr Documented by: Cefepime HCl (Maxipime/Ns 1 Gm/100 Ml) 1 gm in 100 mls @ 200 mls/hr IV Q12HR [facility]; Protocol Levothyroxine Sodium (Synthroid) 88 mcg PO QAM [facility] Morphine Sulfate (Morphine) 1 mg IV Q4H PRN PRN Reason: Pain , Severe (7-10) Ondansetron HCl (Zofran) 4 mg IV Q8H PRN PRN Reason: Nausea And Vomiting Oxycodone/Acetaminophen (Percocet 5/325) 1 tab PO Q6H PRN PRN Reason: Pain, Moderate (4-6) Last Admin: 04/23/19 21:26 Dose: 1 tab Documented by: Pravastatin Sodium (Pravachol) 20 mg PO QHS [facility] Last Admin: 04/23/19 21:26 Dose: 20 mg Documented by: Sodium Chloride (Sodium Chloride Flush Syringe 10 Ml) 10 ml IV BID [facility] Last Admin: 04/23/19 23:00 Dose: 10 ml Documented by: Sodium Chloride (Sodium Chloride Flush Syringe 10 Ml) 10 ml IV PRN PRN PRN Reason: LINE FLUSH Warfarin Sodium (Coumadin) 5 mg PO DAILY@1700 [facility]; Protocol Last Admin: 04/23/19 18:01 Dose: 5 mg Documented by: Review of Systems All systems: negative Exam - Constitutional Vitals: Temp Pulse Resp BP Pulse Ox 98.2 F 62 14 94/48 100 04/24/19 04:00 04/24/19 06:11 04/24/19 06:11 04/24/19 06:11 04/24/19 06:11 General appearance: Present: no acute distress - EENT Eyes: Present: EOM intact ENT: hearing intact - Neck Neck: Present: supple, normal ROM - Respiratory Respiratory effort: normal - Extremities Extremities: abnormal - Abdominal General gastrointestinal: Present: deferred - Rectal Rectal Exam: deferred - Psychiatric Psychiatric: cooperative Results - Labs CBC & Chem 7: 04/24/19 05:16 04/24/19 05:16 Labs: Abnormal lab results 04/24/19 04/24/19 04/24/19 Range/Units 05:16 05:16 05:16 RBC 3.58 L (3.65-5.03) M/mm3 Hgb 10.7 L (11.8-15.2) gm/dl Hct 33.5 L (35.5-45.6) % RDW 19.7 H (13.2-15.2) % Lymph % (Auto) 12.8 L (13.4-35.0) % [place] % (Auto) 9.1 H (0.0-7.3) % [place] # 0.9 H (0.0-0.8) K/mm3 Seg Neutrophils % 77.0 H (40.0-70.0) % PT 34.9 H (12.2-14.9) Sec. INR 3.19 H (0.87-1.13) Potassium 5.1 H (3.6-5.0) mmol/L Chloride 109.4 H (98-107) mmol/L Carbon Dioxide 20 L (22-30) mmol/L BUN 29 H (9-20) mg/dL Creatinine 1.6 H (0.8-1.5) mg/dL Total Bilirubin 1.30 H (0.1-1.2) mg/dL Albumin 2.8 L (3.9-5) g/dL Assessment and Plan The patient will be scheduled for saphenous vein ablations as an outpatient as this service is not offered in any hospital. We will begin the precertification process so that he may get his saphenous vein ablations sooner rather than later. Additionally, the patient likely has perforators and extending to the ulcers and these will also be treated at that time with sclerotherapy. Antibiotic coverage per ID recommendation.
[2019-04-24] MEDS ORDERED: LASIX PO SCH (10:00)
[2019-04-24] MEDS ORDERED: VANCOMYCIN PHARMACY TO DOSE IV SCH (10:00)
[2019-04-24] MEDS: COLACE PO SCH ×2 (10:23→21:04)
[2019-04-24] MEDS: SYNTHROID PO SCH (10:28)
[2019-04-24] MEDS: SODIUM CHLORIDE FLUSH SYRINGE 10 ML IV SCH ×2 (10:28→21:04)
[2019-04-24] MEDS: MAXIPIME/NS 1 GM/100 ML 1 GM/100 ML BAG IV SCH ×2 (11:00→21:04)
[2019-04-24] MEDS: PERCOCET 5/325 PO PRN (16:38)
[2019-04-24] MEDS ORDERED: VANCOMYCIN 1,250 MG in NACL 0.9% 250ML 250 ML IV ONE ×2 (18:00→22:00)
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
[2019-04-24] MEDS: PRAVACHOL PO SCH (21:03)
[2019-04-24] MEDS: LANOXIN PO SCH (21:04)
[2019-04-24 21:34] LABS: Calcium 8.1 mg/dL (8.4-10.2)
[2019-04-25 06:43] LABS: Hematocrit 35.6 % (35.5-45.6); Hemoglobin 11.3 gm/dl (11.8-15.2); Mean Corpuscular HGB Conc 32 % (32-34); Mean Corpuscular Volume 93 fl (84-94); Platelet Count 259 K/mm3 (140-440); Red Blood Count 3.81 M/mm3 (3.65-5.03); Red Cell Distribution Width 19.6 % (13.2-15.2)
[2019-04-25 06:57] LABS: Calcium 8.2 mg/dL (8.4-10.2)
[2019-04-25 07:16] LABS: INR 3.72 (0.87-1.13)
--- NOTE | 2019-04-25 08:27 | Progress Note ---
Assessment and Plan Cultures: 04/22/2019 blood culture: No growth thus far A/P: 83-year-old male with coronary artery disease, congestive heart failure, atrial fibrillation, hypothyroidism, chronic bilateral lower extremity ulcers with venous insufficiency admitted with: 1) Sepsis: Improved, tachycardia continuing. secondary to bilateral lower extremity cellulitis with superficial ulcers in the setting of stasis dermatitis chronic lymphedema and venous insufficiency: anticipate short course of abx. Blo od cultures show no growth. Follow up wound culture. 2) Chronic venous insufficiency: patient will be scheduled for saphenous vein ablations as an outpatient- Dr. Le following 3) Acute kidney injury: Improved. Renally dose antibiotics. Continue to monitor creatinine closely while on vancomycin. 4) A.fib on anticoagulation. Recs: Continue IV cefepime renally adjusted, D2 Continue IV vancomycin, target trough between 10-15 g per m, D2 f/u Wound culture Continue wound care [facility] M: [phone] O:[phone] Subjective Date of service: 04/25/19 Interval history: patient seen and examined. Asleep, easy to arouse. Responds to simple commands. No fevers. Objective - Exam Narrative Exam: Constitutional: Asleep, Easy to arouse. No acute distress Head, Ears, Nose: Normocephalic, atraumatic. External ears, nose normal Eyes: Conjunctivae/corneas clear. No icterus. No ptosis. Neck: Supple, no meningeal signs Oral: Edentulous, no thrush Cardiovascular: S1, S2 normal. Respiratory: Good air entry, clear to auscultation bilaterally GI: Soft, non-tender; bowel sounds normal. No peritoneal signs Musculoskeletal: b/l LE with stasis dermatitis and chronic lymphedema, extensive superficial ulcers, worse on R compared to L. Skin: No rash or abscess. b/l LE with dry skin. Hem/Lymphatic: No palpable cervical or supraclavicular nodes. No lymphangitis Psych: Mood ok. Affect normal Neurological: Awake, alert, oriented. No gross abnormality - Constitutional Vitals: Vital Signs Temp Pulse Resp BP Pulse Ox 98.5 F 122 H 20 134/63 94 04/25/19 07:36 04/25/19 07:36 04/25/19 07:36 04/25/19 07:36 04/25/19 07:36 Temperature -Last 24 Hours Temperature 98.5 F Temperature 97.2 F Temperature 97.3 F Temperature 97.3 F Temperature 97.7 F Temperature 98.2 F Temperature 98.2 F - Labs CBC & Chem 7: 04/25/19 04:32 04/25/19 04:32 Labs: Abnormal lab results 04/24/19 04/25/19 04/25/19 Range/Units 20:59 04:32 04:32 Hgb 11.3 L (11.8-15.2) gm/dl RDW 19.6 H (13.2-15.2) % PT 39.5 H (12.2-14.9) Sec. INR 3.72 H (0.87-1.13) Potassium (3.6-5.0) mmol/L Chloride 109.7 H (98-107) mmol/L Carbon Dioxide (22-30) mmol/L BUN 32 H (9-20) mg/dL Calcium 8.1 L (8.4-10.2) mg/dL 04/25/19 Range/Units 04:32 Hgb (11.8-15.2) gm/dl RDW (13.2-15.2) % PT (12.2-14.9) Sec. INR (0.87-1.13) Potassium 5.1 H (3.6-5.0) mmol/L Chloride 111.7 H (98-107) mmol/L Carbon Dioxide 18 L (22-30) mmol/L BUN 32 H (9-20) mg/dL Calcium 8.2 L (8.4-10.2) mg/dL
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
[2019-04-25] MEDS: MAXIPIME/NS 1 GM/100 ML 1 GM/100 ML BAG IV SCH ×2 (10:23→22:07)
[2019-04-25] MEDS: NACL 0.9% 1000 ML 1,000 ML IV SCH (10:23)
[2019-04-25] MEDS: COLACE PO SCH ×2 (10:26→22:12)
[2019-04-25] MEDS: SODIUM CHLORIDE FLUSH SYRINGE 10 ML IV SCH ×2 (10:27→22:13)
[2019-04-25] MEDS: SYNTHROID PO SCH (10:27)
[2019-04-25] MEDS ORDERED: VANCOMYCIN 1,250 MG in NACL 0.9% 250ML 250 ML IV SCH (22:00)
[2019-04-25] MEDS: LANOXIN PO SCH (22:11)
[2019-04-25] MEDS: PRAVACHOL PO SCH (22:12)
[2019-04-26] MEDS: NACL 0.9% 1000 ML 1,000 ML IV SCH (00:52)
[2019-04-26 08:24] VITALS: BP 149/83
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
[2019-04-26 09:17] LABS: INR 3.79 (0.87-1.13)
[2019-04-26 09:20] LABS: Calcium 8.7 mg/dL (8.4-10.2)
[2019-04-26] MEDS: COLACE PO SCH (10:46)
[2019-04-26] MEDS: SODIUM CHLORIDE FLUSH SYRINGE 10 ML IV SCH (10:47)
[2019-04-26] MEDS: SYNTHROID PO SCH (10:47)
[2019-04-26] MEDS: MAXIPIME/NS 1 GM/100 ML 1 GM/100 ML BAG IV SCH (10:56)
[2019-04-26] MEDS ORDERED: SODIUM BICARBONATE FEEDTUBE PRN (12:44)
[2019-04-26] MEDS ORDERED: SIMPLE SYRUP FEEDTUBE PRN ×2 (12:44)
[2019-04-26] MEDS ORDERED: PANCREAZE DR 10,500 UNIT FEEDTUBE PRN (12:44)
[2019-04-26] MEDS ORDERED: KIONEX PO ONE (12:51)
--- NOTE | 2019-04-26 13:54 | Event Note ---
Date: 04/26/19 I talked to the patient's son Clifford Sarmiento Ab 2 other family members patient's condition and poor prognosis CODE STATUS Son requested DO NOT RESUSCITATE, and signed the necessary documents Patient is a DO NOT RESUSCITATE status, and full treatment
--- NOTE | 2019-04-26 14:05 | Event Note ---
Date: 04/26/19 Nurse called and informed that patient . When I came and examined, Patient is unresponsive,pupils dialated No cardio pulmonary activity noted.Patient pronounced . Time of : 01:50 pm [13:50 Hrs] on 04/26/2019
--- NOTE | 2019-04-26 14:07 | Death Summary ---
Summary - Providers Date of service: 04/26/19 Consults: 04/23/19 02:03 Consult to Wound/ET Nurse [CONS] Routine Reason For Exam: wound eval 04/23/19 09:57 Consult to Physician [CONS] Routine Comment: Consulting Provider: JERSEY BOO Physician Instructions: Reason For Exam: sepsis 04/23/19 09:59 Consult to Interventional Radiology [CONS] Routine Consulting Provider: HARLAN LE Reason For Exam: lower ext severe pvd Place consult to:: dr. le Notified:: yes Comment:: has been seen 04/25/19 08:32 Consult to Dietitian/Nutrition [CONS] Routine Physician Instructions: Reason For Exam: Reason for Consult: Malnutrition 04/25/19 11:10 Speech Therapy Evaluation and Treat [CONS] Urgent Reason For Exam: swallow eval 04/25/19 15:02 Physical Therapy Evaluation and Treat [CONS] Routine Comment: Reason For Exam: Weakness 04/26/19 12:44 Consult to Dietitian/Nutrition [CONS] Routine Physician Instructions: Assess nutrtn needs, initiate, modify, manage TF Reason For Exam: Reason for Consult: Write/Manage Tube Feeding Reason for Consult: Write/Manage Tube Feeding Attending: CAT SMITH - summary Date of admission: 04/23/19 01:15 Date of : 04/26/19 (at 01:50pm [13:50 hrs]) Reason for admission: Kamaljit Cellulitis Lower extremities,severe sepsis Significant findings: 83 y/o Male patient with hx of chronic BLE cellulitis with ulcers and atrial fibrillation was admitted through ER wthnt of worsening bilateral leg swelling,cellulitis,infected wounds and foul-smelling drainage.Had multiple admissions,recent one in january,evaluated by wound surgeon,vascular. During this admission patient has severe sepsis,coagulopathy due to Coumadin Acute kidney injury,Afib with RVR,hypotensive with very poor prognosis,has been unresposive and critically ill since last night.This morning patient was in acute respiratory distress.Discussed with son and family his poor prognosis and code status,son requested DNR. Patient continued to deteriorate with very poor prognosis and at 1:50 pm today. Family at the bed side Final Diagnosis: --Acute respiratory failure --Altered level of consciousness/severe encephalopathy Patient is unresponsive, but hemodynamically stable CT head without contrast, neuro checks and closely monitor --Severe sepsis secondary to bilateral lower extremity cellulitis with ulcers on IV antibiotics cefepime and vancomycin --Atrial fibrillation with RVR s/p Cardizem and now on digoxin patient was hypotensive and could not tolerate oral Cardizem -On Coumadin and INR level supra therapeutic --Coagulopathy/supratherapeutic INR Coumadin, monitor INR, therapeutic goal 2-3 Monitor for any bleeding --JEANNETTE with metabolic acidosis -Probably vasomotor nephropathy -will monitor renal function levels- repeat levels today --Hypotension Hold Diltiazem mary with the worsening renal function --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 Le Recommend saphenous vein ablations as an outpatient as this service is not offered in any hospital. precertification process so that he may get his saphenous vein ablations sooner rather than later. perforators and extending to the ulcers , will also be treated at that time with sclerotherapy. --Hypothyroidism Resume home Synthroid --Hypertension; blood pressures in the lower range --Hyperkalemia Kayxalate and repeat BMP. if still elevated will obtain nephrology input --Severe malnutrition/hypoalbuminemia/albumin 2.8 Nutrition supplements, nutrition consult, supportive care --CAD; Stable --hx of CVA --Calcified pulmonary granuloma --Severe Pulmonary HTN: STABLE --DVT prophylaxis; patient supratherapeutic INR --CODE STATUS/DNR Son requested DNR status Patient at 01:50 Pm on 04/26/19. Family at the bed side Pertinent studies: CXR CT head Disposition: Patient - Final diagnosis (1) Acute respiratory failure Note: Final diagnosis: (2) Cardiac arrhythmia Note: Final diagnosis: (3) Severe sepsis Note: Final diagnosis: (4) Coagulopathy Note: Final diagnosis: (5) Cardiomyopathy Note: Final diagnosis: (6) Atrial fibrillation with RVR Note: Final diagnosis: (7) Combined systolic and diastolic congestive heart failure Note: Final diagnosis: (8) Peripheral vascular insufficiency Note: Final diagnosis:
--- NOTE | 2019-04-26 14:19 | Cat Scan Report ---
PROCEDURE: CT HEAD/BRAIN WO CON TECHNIQUE: Computerized tomography of the head was performed without contrast material. CT DOSE LENGTH PRODUCT: 1166.9 mGycm HISTORY: altered level of consciousness COMPARISONS: None . FINDINGS: Cerebrovascular atherosclerotic calcification is present in the skull base arteries. No acute air-fluid level visualized in the included air-filled sinuses. Bone windows demonstrate no acute fracture. There is ventricular and sulcal prominence compatible with age-appropriate global cerebrocortical atr ophy. Low attenuation regions in the cerebral white matter, while nonspecific, are present and usually attr ibuted to chronic ischemic gliosis. It can occur secondary to the normal aging process, hypertension, or arterial sclerotic vascular dise ase. The differential includes demyelination in the appropriate clinical setting. The brain contains no mass, mass effect, hemorrhage, or acute infarct. There is no extra-axial intracranial bleed or brain bleed. There is no midline shift. IMPRESSION: No acute CVA, intracranial bleed, or brain mass This document is electronically signed by Allen Phoenix MD., April 26 2019 02:16:39 PM ET
== END 2019-04-26 16:09 | DRG 871 ==
LOC: ED 21:32 → IMCU 04-23 01:15 → 2B-ACE 04-24 22:40
PROVIDERS: ADMIT Internal Medicine; ATTEND Internal Medicine
DX: A41.9 Sepsis, unspecified organism (principal); N17.0 Acute kidney failure with tubular necrosis; E43 Unspecified severe protein-calorie malnutrition; J96.00 Acute respiratory failure, unspecified whether with hypoxia or hypercapnia; L03.115 Cellulitis of right lower limb; L03.116 Cellulitis of left lower limb; I50.42 Chronic combined systolic (congestive) and diastolic (congestive) heart failure; D68.69 Other thrombophilia; G93.40 Encephalopathy, unspecified; I42.9 Cardiomyopathy, unspecified; I48.91 Unspecified atrial fibrillation; E03.9 Hypothyroidism, unspecified; I25.10 Atherosclerotic heart disease of native coronary artery without angina pectoris; I11.0 Hypertensive heart disease with heart failure; I25.2 Old myocardial infarction; I87.2 Venous insufficiency (chronic) (peripheral); R65.20 Severe sepsis without septic shock; J84.10 Pulmonary fibrosis, unspecified; I27.20 Pulmonary hypertension, unspecified; E87.5 Hyperkalemia; I73.9 Peripheral vascular disease, unspecified; Z66 Do not resuscitate; Z68.30 Body mass index [BMI] 30.0-30.9, adult; Z79.01 Long term (current) use of anticoagulants; Z86.73 Personal history of transient ischemic attack (TIA), and cerebral infarction without residual deficits; Z87.891 Personal history of nicotine dependence
CPT/HCPCS: 36415; 70450; 71045; 80048; 80053; 80202; 81001; 82140; 82805; 82962; 83735; 85025; 85027; 85610; 85730; 87040; 87076; 87116; 87186; 93005; 93010; 96365; G0378; A9270-GY; J0692; J2543; J3370; J7030; J7040; J7050